=== PATIENT | female | born 1945 | race Caucasian/White ===

== ENCOUNTER 2021-08-13 12:57 | Inpatient (IN) | payer MEDICARE, MEDICAID ==
[2021-08-13] MEDS ORDERED: Sodium Chloride 0.9% 10 ML Syringe FLUSH PRN (13:12)
[2021-08-13] MEDS ORDERED: Sodium Chloride 0.9% 1,000 ML IV SCH (13:30)
--- NOTE | 2021-08-13 13:57 | EDM.PDOC ---
ED HPI GENERAL MEDICAL PROBLEM - General Stated Complaint: Fall/Weakness Time Seen by Provider: 08/13/21 13:00 Source of Information: Reports: Patient, EMS History Limitations: Reports: No Limitations - History of Present Illness INITIAL COMMENTS - FREE TEXT/NARRATIVE: Patient is a 75 YO WF who presented to the ED via EMS because of frequent fall for the past and weakness. She fell getting up from her chair at 4 pm yesterday and landed on her buttock. She c/o low back and and coccygeal pain. She said she was not able to get up from the floor yesterday because her legs are weak. There was no LOC after the fall. She denies having any fever, chills, cough or cold. No Nausea,vomiting, diarrhea. All over Pain Score (Numeric/FACES): 4 - Related Data Allergies Allergy/AdvReac Type Severity Reaction Status Date / Time shrimp Allergy Unknown Other Verified 08/13/21 16:26 Home Meds: Home Meds Venlafaxine HCl [Venlafaxine ER] 75 mg PO DAILY 08/13/21 [History] Venlafaxine HCl [Venlafaxine ER] 150 mg PO DAILY 08/13/21 [History] ED ROS GENERAL - Review of Systems Review Of Systems: See Below Constitutional: Reports: Weakness HEENT: Reports: No Symptoms Respiratory: Reports: No Symptoms Cardiovascular: Reports: No Symptoms Endocrine: Reports: No Symptoms GI/Abdominal: Reports: No Symptoms : Reports: No Symptoms Musculoskeletal: Reports: Back Pain, Other (coccygeal pain) Skin: Reports: No Symptoms Neurological: Reports: No Symptoms Psychiatric: Reports: No Symptoms Hematologic/Lymphatic: Reports: No Symptoms ED EXAM, GENERAL - Physical Exam Exam: See Below Exam Limited By: No Limitations General Appearance: Alert, No Apparent Distress Ears: Normal External Exam, Normal Canal Nose: Normal Inspection, Normal Mucosa, No Blood Throat/Mouth: Normal Inspection, Normal Lips, Normal Teeth Head: Atraumatic, Normocephalic Neck: Normal Inspection, Non-Tender, Full Range of Motion Respiratory/Chest: No Respiratory Distress, Lungs Clear, Normal Breath Sounds, No Accessory Muscle Use, Chest Non-Tender Cardiovascular: Normal Peripheral Pulses, Regular Rate, Rhythm, No Edema, No JVD, No Murmur GI/Abdominal: Normal Bowel Sounds, Soft, Non-Tender, No Organomegaly, No Distention, No Abnormal Bruit, No Mass Back Exam: Normal Inspection, Full Range of Motion Extremities: Normal Inspection, Normal Range of Motion, Non-Tender, No Pedal Edema, Normal Capillary Refill Neurological: Alert, Oriented, CN II-XII Intact, Normal Cognition, Normal Reflexes, No Motor/Sensory Deficits Psychiatric: Normal Affect Skin Exam: Warm #1 Interpretation EKG Date: 08/13/21 Time: 14:41 Rhythm: NSR Rate (Beats/Min): 83 [place]: Normal P-Wave: Present QRS: Normal ST-T: Normal QT: Normal FL/PQ Interval: 158 Comparison: No Change EKG Interpretation Comments: NSR Course - Vital Signs Text/Narrative:: Lab/EKG/CXR/Lumbar and coccygeal xray result was reviewed and discussed with patient NS 1 L bolus Code Status: Full Code Covid test-neg Last Recorded V/S: Last Vital Signs Temp 36.2 C 08/16/21 08:00 Pulse 78 08/16/21 08:00 Resp 20 08/16/21 08:00 BP 148/75 H 08/16/21 08:00 Pulse Ox 92 L 08/16/21 08:00 - Orders/Labs/Meds Orders: Medication Orders Acetaminophen (Acetaminophen 325 Mg Tab) 650 mg PO Q4H PRN PRN Reason: Fever/Pain Last Admin: 08/13/21 20:03 Dose: 650 mg Documented by: [email or web address] Amoxicillin/Clavulanate Potassium (Amoxicillin/Clavulanate K 875-125 Mg Tab) 1 tab PO Q12H [facility] Last Admin: 08/16/21 08:46 Dose: 1 tab Documented by: NOY Enoxaparin Sodium (Enoxaparin 40 Mg/0.4 Ml Syringe) 40 mg SUBCUT Q24H [facility] Last Admin: 08/15/21 17:36 Dose: 40 mg Documented by: [email or web address] Admin: 08/14/21 17:03 Dose: 40 mg Documented by: Admin: 08/13/21 16:44 Dose: 40 mg Documented by: PINA Ondansetron HCl (Ondansetron 4 Mg/2 Ml Sdv) 4 mg IV Q4H PRN PRN Reason: Nausea/Vomiting Senna/Docusate Sodium (Docusate Sodium/Sennosides 50-8.6 Mg Tab) 1 tab PO BID PRN PRN Reason: Constipation Sodium Chloride (Sodium Chloride 0.9% 10 Ml Syringe) 10 ml FLUSH ASDIRECTED PRN PRN Reason: Keep Vein Open Last Admin: 08/14/21 17:04 Dose: 10 ml Documented by: [id number] Tramadol HCl (Tramadol 50 Mg Tab) 50 mg PO Q6H PRN PRN Reason: Pain Venlafaxine HCl (Venlafaxine 75 Mg Cap.Er) 75 mg PO DAILY [facility] Last Admin: 08/16/21 08:46 Dose: 75 mg Documented by: Admin: 08/15/21 08:36 Dose: 75 mg Documented by: Admin: 08/14/21 12:53 Dose: 75 mg Documented by: [email or web address] Venlafaxine HCl (Venlafaxine 150 Mg Cap.Er) 150 mg PO DAILY [facility] Last Admin: 08/16/21 08:47 Dose: 150 mg Documented by: Admin: 08/15/21 08:35 Dose: 150 mg Documented by: Admin: 08/14/21 12:53 Dose: 150 mg Documented by: [email or web address] Labs: Laboratory Tests 08/13/21 08/13/21 08/13/21 Range/Units 13:20 13:32 13:32 WBC 10.0 (3.0-10.3) x10-3/uL RBC 5.18 (3.60-5.20) x10(6)uL Hgb 13.9 (11.4-15.5) g/dL Hct 41.0 (34.2-48.2) % MCV 79.2 (76.7-100.5) fL MCH 26.8 (23.9-33.9) pg MCHC 33.8 (31.9-34.8) g/dL RDW 13.8 (12.3-16.5) % Plt Count 375 (151-488) x10(3)uL MPV 6.7 L (7.1-12.4) fL Neut % (Auto) 73.9 (30.8-76.2) % Lymph % (Auto) 17.0 L (18.4-52.1) % Hunt % (Auto) 8.0 (4.4-15.7) % Eos % (Auto) 0.6 (0.6-8.1) % Baso % (Auto) 0.5 (0.2-1.5) % Neut # (Auto) 7.4 H (1.5-6.3) x10-3/uL Lymph # (Auto) 1.7 (1.0-4.4) x10-3/uL Hunt # (Auto) 0.8 (0.3-1.0) x10-3/uL Eos # (Auto) 0.1 (0.0-0.8) x10-3/uL Baso # (Auto) 0.0 (0.0-0.1) x10-3/uL Sodium 141 (135-145) mmol/L Potassium 3.2 L (3.5-5.3) mmol/L Chloride 103 (100-110) mmol/L Carbon Dioxide 29 (21-32) mmol/L BUN 11 (7-18) mg/dL Creatinine 0.8 (0.55-1.02) mg/dL Est Cr Clr Drug Dosing TNP Estimated GFR (MDRD) > 60 (>60) BUN/Creatinine Ratio 13.8 (9-20) Glucose 121 H (80-116) mg/dL Calcium 9.4 (8.6-10.2) mg/dL Total Bilirubin 1.0 (0.1-1.3) mg/dL AST 73 H (5-25) IU/L ALT 42 H (12-36) U/L Alkaline Phosphatase 88 (56-112) IU/L Creatine Kinase 1333 H* (60-160) IU/L Troponin I (4.0-60.3) pg/mL Total Protein 7.9 (6.0-8.0) g/dL Albumin 3.4 (3.2-4.6) g/dL Globulin 4.5 g/dL Albumin/Globulin Ratio 0.8 Urine Color (YELLOW) Urine Appearance (CLEAR) Urine pH (5.0-6.5) Ur Specific [place] (1.010-1.025) Urine Protein (NEGATIVE) mg/dL Urine Glucose (UA) (NORMAL) mg/dL Urine Ketones (NEGATIVE) mg/dL Urine Occult Blood (NEGATIVE) Urine Nitrite (NEGATIVE) Urine Bilirubin (NEGATIVE) Urine Urobilinogen (NEGATIVE) mg/dL Ur Leukocyte Esterase (NEGATIVE) Urine RBC (0-5) Urine WBC (0-5) Ur Squamous Epith Cells (NS,R,O) Urine Bacteria (NS) SARS-CoV-2 RNA (YURI) Negative (NEGATIVE) 08/13/21 08/13/21 08/14/21 Range/Units 13:32 15:00 06:35 WBC (3.0-10.3) x10-3/uL RBC (3.60-5.20) x10(6)uL Hgb (11.4-15.5) g/dL Hct (34.2-48.2) % MCV (76.7-100.5) fL MCH (23.9-33.9) pg MCHC (31.9-34.8) g/dL RDW (12.3-16.5) % Plt Count (151-488) x10(3)uL MPV (7.1-12.4) fL Neut % (Auto) (30.8-76.2) % Lymph % (Auto) (18.4-52.1) % Hunt % (Auto) (4.4-15.7) % Eos % (Auto) (0.6-8.1) % Baso % (Auto) (0.2-1.5) % Neut # (Auto) (1.5-6.3) x10-3/uL Lymph # (Auto) (1.0-4.4) x10-3/uL Hunt # (Auto) (0.3-1.0) x10-3/uL Eos # (Auto) (0.0-0.8) x10-3/uL Baso # (Auto) (0.0-0.1) x10-3/uL Sodium 146 H (135-145) mmol/L Potassium 3.8 (3.5-5.3) mmol/L Chloride 110 D (100-110) mmol/L Carbon Dioxide 28 (21-32) mmol/L BUN 12 (7-18) mg/dL Creatinine 0.8 (0.55-1.02) mg/dL Est Cr Clr Drug Dosing 59.09 Estimated GFR (MDRD) > 60 (>60) BUN/Creatinine Ratio 15.0 (9-20) Glucose 102 (80-116) mg/dL Calcium 8.8 (8.6-10.2) mg/dL Total Bilirubin (0.1-1.3) mg/dL AST (5-25) IU/L ALT (12-36) U/L Alkaline Phosphatase (56-112) IU/L Creatine Kinase 468 H* (60-160) IU/L Troponin I 15.8 (4.0-60.3) pg/mL Total Protein (6.0-8.0) g/dL Albumin (3.2-4.6) g/dL Globulin g/dL Albumin/Globulin Ratio Urine Color Yellow (YELLOW) Urine Appearance Slightly cloudy (CLEAR) Urine pH 5.0 (5.0-6.5) Ur Specific [place] 1.030 H (1.010-1.025) Urine Protein Negative (NEGATIVE) mg/dL Urine Glucose (UA) Normal (NORMAL) mg/dL Urine Ketones Negative (NEGATIVE) mg/dL Urine Occult Blood Large H (NEGATIVE) Urine Nitrite Positive H (NEGATIVE) Urine Bilirubin Negative (NEGATIVE) Urine Urobilinogen Normal (NEGATIVE) mg/dL Ur Leukocyte Esterase Negative (NEGATIVE) Urine RBC 5-10 H (0-5) Urine WBC 5-10 H (0-5) Ur Squamous Epith Cells Few H (NS,R,O) Urine Bacteria Many H (NS) SARS-CoV-2 RNA (YURI) (NEGATIVE) Meds: Medications Generic Name Dose Route Start Last Admin Trade Name Freq PRN Reason Stop Dose Admin Acetaminophen 650 mg 08/13/21 16:02 08/13/21 20:03 Acetaminophen 325 Mg Tab PO 650 mg Q4H PRN Administration Fever/Pain Amoxicillin/Clavulanate Potassium 1 tab 08/16/21 08:00 08/16/21 08:46 Amoxicillin/Clavulanate K 875-125 Mg Tab PO 1 tab Q12H EBONI Administration Enoxaparin Sodium 40 mg 08/13/21 16:30 08/15/21 17:36 Enoxaparin 40 Mg/0.4 Ml Syringe SUBCUT 40 mg Q24H EBONI Administration Ondansetron HCl 4 mg 08/13/21 15:56 Ondansetron 4 Mg/2 Ml Sdv IV Q4H PRN Nausea/Vomiting Senna/Docusate Sodium 1 tab 08/13/21 15:56 Docusate Sodium/Sennosides 50-8.6 Mg Tab PO BID PRN Constipation Sodium Chloride 10 ml 08/13/21 13:12 08/14/21 17:04 Sodium Chloride 0.9% 10 Ml Syringe FLUSH 10 ml ASDIRECTED PRN Administration Keep Vein Open Tramadol HCl 50 mg 08/13/21 16:03 Tramadol 50 Mg Tab PO Q6H PRN Pain Venlafaxine HCl 75 mg 08/14/21 11:30 08/16/21 08:46 Venlafaxine 75 Mg Cap.Er PO 75 mg DAILY EBONI Administration Venlafaxine HCl 150 mg 08/14/21 11:30 08/16/21 08:47 Venlafaxine 150 Mg Cap.Er PO 150 mg DAILY EBONI Administration Discontinued Medications Generic Name Dose Route Start Last Admin Trade Name Freq PRN Reason Stop Dose Admin Ceftriaxone Sodium 1 gm 08/13/21 16:30 08/15/21 17:36 Ceftriaxone 1 Gm Vial IV 1 gm Q24H EBONI Administration Sodium Chloride 1,000 mls @ 999 mls/hr 08/13/21 13:30 08/13/21 14:20 Normal Saline IV 999 mls/hr ASDIRECTED EBONI Administration Potassium Chloride/Sodium Chloride 1,000 mls @ 125 mls/hr 08/13/21 16:30 08/14/21 18:14 Normal Saline With 20 Meq Kcl IV 125 mls/hr Q8H EBONI Administration Potassium Chloride/Sodium Chloride 1,000 mls @ 75 mls/hr 08/14/21 19:46 08/15/21 06:56 Normal Saline With 20 Meq Kcl IV 75 mls/hr ASDIRECTED EBONI Administration Departure - Departure Time of Disposition: 14:00 Disposition: Refer to Observation Condition: Good Clinical Impression: Frequent falls, Weakness, Rhabdomyolysis, UTI (urinary tract infection), Hypokalemia - Discharge Information
--- NOTE | 2021-08-13 14:37 | CR ---
INDICATION: Weakness, fall. CHEST, ONE VIEW: An AP upright view of the chest was obtained, 08/13/21 - no comparisons. The heart was normal in size. The aorta is tortuous with calcification in the arch. An active infiltrate, effusion or contusion was not identified. Evidence of exogenous obesity is noted. IMPRESSION: No acute process. MTDD
--- NOTE | 2021-08-13 14:43 | CR ---
INDICATION: Fall, low back pain. LUMBOSACRAL SPINE: Five views of the lumbosacral spine were obtained, 08/13/21 - no comparisons. A mild dextroconvex of minimally rotatory scoliosis of the upper middle lumbar spine is noted. The pedicles appear to be intact. Degenerative disc disease is suggested by decreased disc space at L3-4, and especially L4-5, with probable disc disease also at L5-S1. Hypertrophic degenerative changes are mild to moderate at those levels off vertebral bodies anteriorly for the most part. Overall bone density may be very slightly decreased, raising question of osteoporosis - correlate clinically. There is narrowing and sclerosis at the L5-S1 apophyseal joints, right greater than left and also at L4-5 on the right. A definite acute fracture or dislocation was not identified. Sacroiliac joints appear to be intact. IMPRESSION: 1. Degenerative changes and disc disease, as noted above, with no acute bone or joint abnormality identified. 2. If symptoms persist - if occult fracture site is suspected clinically, reexamination with more advanced imaging may be warranted. CASEYD
--- NOTE | 2021-08-13 14:47 | CR ---
INDICATION: Fall, coccygeal pain. SACRUM AND COCCYX: Three views of the sacrum and coccyx were obtained, 08/13/21 - no comparisons. Stool is noted overlying the sacrum and coccyx on the frontal views, limiting detail somewhat. Sacroiliac joints show evidence of mild degenerative hypertrophic change. At the coccyx, there is some angulation posteriorly of first and second elements, raising question of posttraumatic change, although without old films for comparison, the possibility of developmental variation is also a consideration. This should be correlated clinically. IMPRESSION: 1. Lower coccygeal segments appear to be anteriorly angulated, which may be on the basis posttraumatic change or possibly be developmental - correlate clinically. 2. Mild degenerative changes, sacroiliac joints. Report was called to Dr. Roque at 1428 hours, 08/13/21. [facility]
[2021-08-13] MEDS ORDERED: Ondansetron 4 MG/2 ML SDV IV PRN (15:56)
[2021-08-13] MEDS ORDERED: cefTRIAXone 1 GM in Sodium Chloride 0.9% 50 ML IV SCH (16:00)
[2021-08-13] MEDS ORDERED: Acetaminophen 325 MG Tab PO PRN (16:02)
[2021-08-13] MEDS ORDERED: traMADol 50 MG Tab PO PRN (16:03)
[2021-08-13] MEDS: NS + KCl 20mEq/L 1,000 ML IV SCH (16:43)
[2021-08-13] MEDS: Enoxaparin 40 MG/0.4 ML Syringe SUBCUT SCH (16:44)
[2021-08-13] MEDS: cefTRIAXone 1 GM Vial IV SCH (16:44)
--- NOTE | 2021-08-13 17:29 | PCM.HP.2 ---
H&P History of Present Illness - General Date of Service: 08/13/21 Admit Problem/Dx: Admission Diagnosis/Problem Admission Diagnosis/Problem Weakness Source of Information: Patient - History of Present Illness Initial Comments - Free Text/Narative: 75-year-old lady was taken to the emergency department via EMS due to significant weakness and falls. She has been having increasing weakness and increasing falls over the last several days. She has had these problems in the past and seems to be getting progressively weaker over time. She states that she felt quite well with no fever, chills, flulike symptoms, chest pain, shortness of breath, change in bowel or bladder habits. She just gets weak and sometimes falls. Yesterday she fell out of her chair and spent quite some time on the floor. She lives in an apartment with her but her was off at the [facility]. She was able to call for help and EMS brought her to the emergency department in the emergency department imaging was done because of complaint of pain in the buttocks and lower back secondary to fall the day before. These x-rays were grossly negative. Chest x-ray was negative. Laboratory analysis showed significant increase in creatinine kinase likely secondary to rhabdomyolysis secondary to being on the floor for several hours and likely urinary tract infection. Patient will be admitted to observation and evaluated with PT/OT. To be treated with IV antibiotics and culture was started for her urine. - Related Data Allergies/Adverse Reactions: Allergies Allergy/AdvReac Type Severity Reaction Status Date / Time shrimp Allergy Unknown Other Verified 08/13/21 16:26 Home Medications: Home Meds Venlafaxine HCl [Venlafaxine ER] 75 mg PO DAILY 08/13/21 [History] Venlafaxine HCl [Venlafaxine ER] 150 mg PO DAILY 08/13/21 [History] H&P Review of Systems - Review of Systems: Review Of Systems: See Below General: Reports: Weakness HEENT: Reports: No Symptoms Pulmonary: Reports: No Symptoms Cardiovascular: Reports: No Symptoms Gastrointestinal: Reports: No Symptoms Genitourinary: Reports: No Symptoms Musculoskeletal: Reports: Back Pain, Leg Pain Skin: Reports: No Symptoms Psychiatric: Reports: No Symptoms Neurological: Reports: Difficulty Walking, Weakness Hematologic/Lymphatic: Reports: No Symptoms Immunologic: Reports: No Symptoms Exam - Exam Exam: See Below - Vital Signs Weight: 90.129 kg - Exam Quality Assessment: Supplemental Oxygen, DVT Prophylaxis General: Alert, Oriented, Cooperative HEENT: EOMI Neck: Supple Lungs: Clear to Auscultation, Normal Respiratory Effort Cardiovascular: Regular Rate, Regular Rhythm GI/Abdominal Exam: Normal Bowel Sounds, Soft, Non-Tender Back Exam: Normal Inspection Extremities: Normal Inspection Peripheral Pulses: 2+: Radial (L), Radial (R), Dorsalis Pedis (L), Dorsalis Pedis (R) Skin: Warm, Dry Neurological: Cranial Nerves Intact Neuro Extensive - Mental Status: Alert, Oriented x3, Normal Mood/Affect, Normal Cognition Psychiatric: Alert, Normal Affect, Normal Mood - Patient Data Lab Results Last 24 hrs: Laboratory Results - last 24 hr 08/13/21 08/13/21 08/13/21 Range/Units 13:20 13:32 13:32 WBC 10.0 (3.0-10.3) x10-3/uL RBC 5.18 (3.60-5.20) x10(6)uL Hgb 13.9 (11.4-15.5) g/dL Hct 41.0 (34.2-48.2) % MCV 79.2 (76.7-100.5) fL MCH 26.8 (23.9-33.9) pg MCHC 33.8 (31.9-34.8) g/dL RDW 13.8 (12.3-16.5) % Plt Count 375 (151-488) x10(3)uL MPV 6.7 L (7.1-12.4) fL Neut % (Auto) 73.9 (30.8-76.2) % Lymph % (Auto) 17.0 L (18.4-52.1) % [place] % (Auto) 8.0 (4.4-15.7) % Eos % (Auto) 0.6 (0.6-8.1) % Baso % (Auto) 0.5 (0.2-1.5) % Neut # (Auto) 7.4 H (1.5-6.3) x10-3/uL Lymph # (Auto) 1.7 (1.0-4.4) x10-3/uL [place] # (Auto) 0.8 (0.3-1.0) x10-3/uL Eos # (Auto) 0.1 (0.0-0.8) x10-3/uL Baso # (Auto) 0.0 (0.0-0.1) x10-3/uL Sodium 141 (135-145) mmol/L Potassium 3.2 L (3.5-5.3) mmol/L Chloride 103 (100-110) mmol/L Carbon Dioxide 29 (21-32) mmol/L BUN 11 (7-18) mg/dL Creatinine 0.8 (0.55-1.02) mg/dL Est Cr Clr Drug Dosing TNP Estimated GFR (MDRD) > 60 (>60) BUN/Creatinine Ratio 13.8 (9-20) Glucose 121 H (80-116) mg/dL Calcium 9.4 (8.6-10.2) mg/dL Total Bilirubin 1.0 (0.1-1.3) mg/dL AST 73 H (5-25) IU/L ALT 42 H (12-36) U/L Alkaline Phosphatase 88 (56-112) IU/L Creatine Kinase 1333 H* (60-160) IU/L Troponin I (4.0-60.3) pg/mL Total Protein 7.9 (6.0-8.0) g/dL Albumin 3.4 (3.2-4.6) g/dL Globulin 4.5 g/dL Albumin/Globulin Ratio 0.8 Urine Color (YELLOW) Urine Appearance (CLEAR) Urine pH (5.0-6.5) Ur Specific Alexis (1.010-1.025) Urine Protein (NEGATIVE) mg/dL Urine Glucose (UA) (NORMAL) mg/dL Urine Ketones (NEGATIVE) mg/dL Urine Occult Blood (NEGATIVE) Urine Nitrite (NEGATIVE) Urine Bilirubin (NEGATIVE) Urine Urobilinogen (NEGATIVE) mg/dL Ur Leukocyte Esterase (NEGATIVE) Urine RBC (0-5) Urine WBC (0-5) Ur Squamous Epith Cells (NS,R,O) Urine Bacteria (NS) SARS-CoV-2 RNA (YURI) Negative (NEGATIVE) 08/13/21 08/13/21 Range/Units 13:32 15:00 WBC (3.0-10.3) x10-3/uL RBC (3.60-5.20) x10(6)uL Hgb (11.4-15.5) g/dL Hct (34.2-48.2) % MCV (76.7-100.5) fL MCH (23.9-33.9) pg MCHC (31.9-34.8) g/dL RDW (12.3-16.5) % Plt Count (151-488) x10(3)uL MPV (7.1-12.4) fL Neut % (Auto) (30.8-76.2) % Lymph % (Auto) (18.4-52.1) % [place] % (Auto) (4.4-15.7) % Eos % (Auto) (0.6-8.1) % Baso % (Auto) (0.2-1.5) % Neut # (Auto) (1.5-6.3) x10-3/uL Lymph # (Auto) (1.0-4.4) x10-3/uL [place] # (Auto) (0.3-1.0) x10-3/uL Eos # (Auto) (0.0-0.8) x10-3/uL Baso # (Auto) (0.0-0.1) x10-3/uL Sodium (135-145) mmol/L Potassium (3.5-5.3) mmol/L Chloride (100-110) mmol/L Carbon Dioxide (21-32) mmol/L BUN (7-18) mg/dL Creatinine (0.55-1.02) mg/dL Est Cr Clr Drug Dosing Estimated GFR (MDRD) (>60) BUN/Creatinine Ratio (9-20) Glucose (80-116) mg/dL Calcium (8.6-10.2) mg/dL Total Bilirubin (0.1-1.3) mg/dL AST (5-25) IU/L ALT (12-36) U/L Alkaline Phosphatase (56-112) IU/L Creatine Kinase (60-160) IU/L Troponin I 15.8 (4.0-60.3) pg/mL Total Protein (6.0-8.0) g/dL Albumin (3.2-4.6) g/dL Globulin g/dL Albumin/Globulin Ratio Urine Color Yellow (YELLOW) Urine Appearance Slightly cloudy (CLEAR) Urine pH 5.0 (5.0-6.5) Ur Specific Alexis 1.030 H (1.010-1.025) Urine Protein Negative (NEGATIVE) mg/dL Urine Glucose (UA) Normal (NORMAL) mg/dL Urine Ketones Negative (NEGATIVE) mg/dL Urine Occult Blood Large H (NEGATIVE) Urine Nitrite Positive H (NEGATIVE) Urine Bilirubin Negative (NEGATIVE) Urine Urobilinogen Normal (NEGATIVE) mg/dL Ur Leukocyte Esterase Negative (NEGATIVE) Urine RBC 5-10 H (0-5) Urine WBC 5-10 H (0-5) Ur Squamous Epith Cells Few H (NS,R,O) Urine Bacteria Many H (NS) SARS-CoV-2 RNA (YURI) (NEGATIVE) Result Diagrams: 08/13/21 13:32 08/13/21 13:32 - Problem List (1) Frequent falls SNOMED Code(s): 339291988 ICD Code: R29.6 - REPEATED FALLS Status: Acute Current Visit: Yes (2) Hypokalemia SNOMED Code(s): 26834716 ICD Code: E87.6 - HYPOKALEMIA Status: Acute Current Visit: Yes (3) Rhabdomyolysis SNOMED Code(s): 823219506 ICD Code: M62.82 - RHABDOMYOLYSIS Status: Acute Current Visit: Yes (4) UTI (urinary tract infection) SNOMED Code(s): 24641558 ICD Code: N39.0 - URINARY TRACT INFECTION, SITE NOT SPECIFIED Status: Acute Current Visit: Yes (5) Weakness SNOMED Code(s): 00090030 ICD Code: R53.1 - WEAKNESS Status: Acute Current Visit: Yes (6) Depression SNOMED Code(s): 07536066 ICD Code: F32.A - DEPRESSION, UNSPECIFIED Status: Acute Current Visit: Yes Problem List Initiated/Reviewed/Updated: Yes Orders Last 24hrs: Active Orders 24 hr Category Date Time Status Patient Status [ADT] Routine ADT 08/13/21 15:56 Active Patient Status [ADT] Routine ADT 08/13/21 17:18 Ordered Antiembolic Devices [RC] .Routine Care 08/13/21 17:19 Ordered Bedrest Bathroom Privileges [RC] ASDIRECTED Care 08/13/21 15:56 Active Height and Weight [RC] DAILY Care 08/13/21 15:56 Active Intake and Output [RC] QSHIFT Care 08/13/21 15:58 Active Oxygen Therapy [RC] PRN Care 08/13/21 15:56 Active Pulse Oximetry [RC] 08 Care 08/13/21 15:58 Active Pulse Oximetry [RC] PRN Care 08/13/21 17:18 Ordered Up With Assistance [RC] ASDIRECTED Care 08/13/21 15:56 Active VTE/DVT Education [RC] Click to Edit Care 08/13/21 17:19 Ordered VTE/DVT Education [RC] Per Unit Routine Care 08/13/21 15:56 Active Vital Signs [RC] Q4H Care 08/13/21 15:56 Active Vital Signs [RC] Q4H Care 08/13/21 17:18 Ordered OT Evaluation and Treatment [CONS] Routine Cons 08/13/21 17:20 Ordered PT Evaluation and Treatment [CONS] Routine Cons 08/13/21 17:21 Ordered Heart Healthy Diet [DIET] Diet 08/13/21 Dinner Ordered BASIC METABOLIC PANEL,BMP [CHEM] AM Lab 08/14/21 05:11 Ordered CREATINE KINASE,CK [CHEM] AM Lab 08/14/21 05:11 Ordered CULTURE URINE [RM] Stat Lab 08/13/21 15:00 Received Acetaminophen [TylenoL] Med 08/13/21 16:02 Active 650 mg PO Q4H PRN Docusate Sodium/Sennosides [Senna Plus] Med 08/13/21 15:56 Active 1 tab PO BID PRN Enoxaparin [Lovenox] Med 08/13/21 16:30 Active 40 mg SUBCUT Q24H NS + KCl 20mEq/L [Normal Saline with 20 mEq KCl] 1,000 Med 08/13/21 16:30 Active ml IV Q8H Ondansetron [Zofran] Med 08/13/21 15:56 Active 4 mg IV Q4H PRN Sodium Chloride 0.9% [Normal Saline] 1,000 ml Med 08/13/21 13:30 Active IV ASDIRECTED Sodium Chloride 0.9% [Saline Flush] Med 08/13/21 13:12 Active 10 ml FLUSH ASDIRECTED PRN Venlafaxine [Effexor XR] Med 08/14/21 09:00 Pending 150 mg PO DAILY Venlafaxine [Effexor XR] Med 08/14/21 09:00 Pending 75 mg PO DAILY cefTRIAXone [Rocephin] Med 08/13/21 16:30 Active 1 gm IV Q24H traMADol [Ultram] Med 08/13/21 16:03 Active 50 mg PO Q6H PRN DVT/VTE Prophylaxis Reflex [OM.PC] Per Unit Routine Oth 08/13/21 17:18 Ordered Saline Lock Insert [OM.PC] Routine Oth 08/13/21 13:12 Ordered Sequential Compression Device [OM.PC] Per Unit Routine Oth 08/13/21 15:59 Ordered Resuscitation Status Routine Resus Stat 08/13/21 15:56 Ordered EKG 12 Lead [EK] Routine Ther 08/13/21 13:12 Ordered Medication Orders Acetaminophen (Acetaminophen 325 Mg Tab) 650 mg PO Q4H PRN PRN Reason: Fever/Pain Ceftriaxone Sodium (Ceftriaxone 1 Gm Vial) 1 gm IV Q24H FOR[facility], [facility]1983 Last Admin: 08/13/21 16:44 Dose: 1 gm Documented by: PINA Enoxaparin Sodium (Enoxaparin 40 Mg/0.4 Ml Syringe) 40 mg SUBCUT Q24H [facility], [facility]–1983 Last Admin: 08/13/21 16:44 Dose: 40 mg Documented by: PINA Sodium Chloride (Normal Saline) 1,000 mls @ 999 mls/hr IV ASDIRECTED [facility], [facility]–1983 Potassium Chloride/Sodium Chloride (Normal Saline With 20 Meq Kcl) 1,000 mls @ 125 mls/hr IV Q8H [facility] Last Admin: 08/13/21 16:43 Dose: 125 mls/hr Documented by: PINA Ondansetron HCl (Ondansetron 4 Mg/2 Ml Sdv) 4 mg IV Q4H PRN PRN Reason: Nausea/Vomiting Senna/Docusate Sodium (Docusate Sodium/Sennosides 50-8.6 Mg Tab) 1 tab PO BID PRN PRN Reason: Constipation Sodium Chloride (Sodium Chloride 0.9% 10 Ml Syringe) 10 ml FLUSH ASDIRECTED PRN PRN Reason: Keep Vein Open Tramadol HCl (Tramadol 50 Mg Tab) 50 mg PO Q6H PRN PRN Reason: Pain Venlafaxine HCl (Venlafaxine 75 Mg Cap.Er) 75 mg PO DAILY [facility] Venlafaxine HCl (Venlafaxine 150 Mg Cap.Er) 150 mg PO DAILY [facility] Assessment/Plan Comment:: 1. Admit patient to observation. Trend BMP and CPK. OT/PT evaluation tomorrow 2. Weakness: Occupational physical therapy 3. UTI: Monitor urine culture, ceftriaxone, 1 g daily, fluids 4. Hypokalemia: Trend electrolytes, repleat electrolytes as necessary 5. DVT prophylaxis: 40 mg subcu enoxaparin daily 6. GI prophylaxis: Heart healthy diet 7. Disposition: Pending treatment efficacy and PT/OT evaluation, likely 1 to 2 days
[2021-08-14] MEDS: NS + KCl 20mEq/L 1,000 ML IV SCH ×4 (00:32→20:39)
--- NOTE | 2021-08-14 10:32 | PCM.PN ---
- General Info Date of Service: 08/14/21 Admission Dx/Problem (Free Text): Admission Diagnosis/Problem Admission Diagnosis/Problem Weakness Subjective Update: Patient states that she feels much better today but is still very weak. She has no pain at this time Functional Status: Reports: Pain Controlled, Tolerating Diet, Ambulating, Urinating - Review of Systems General: Reports: Weakness HEENT: Reports: No Symptoms Pulmonary: Reports: No Symptoms Cardiovascular: Reports: No Symptoms Gastrointestinal: Reports: No Symptoms Genitourinary: Reports: No Symptoms Musculoskeletal: Reports: No Symptoms Skin: Reports: No Symptoms Neurological: Reports: Difficulty Walking, Weakness Psychiatric: Reports: No Symptoms - Patient Data Vitals - Most Recent: Last Vital Signs Temp 36.7 C 08/14/21 04:00 Pulse 86 08/14/21 04:00 Resp 14 08/14/21 04:00 BP 140/68 08/14/21 04:00 Pulse Ox 96 08/14/21 04:00 Weight - Most Recent: 90.174 kg I&O - Last 24 Hours: Intake & Output 08/13/21 08/14/21 08/14/21 22:59 06:59 14:59 Intake Total 1886 1002 Balance 1886 1002 Lab Results Last 24 Hours: Laboratory Results - last 24 hr 08/13/21 08/13/21 08/13/21 Range/Units 13:20 13:32 13:32 WBC 10.0 (3.0-10.3) x10-3/uL RBC 5.18 (3.60-5.20) x10(6)uL Hgb 13.9 (11.4-15.5) g/dL Hct 41.0 (34.2-48.2) % MCV 79.2 (76.7-100.5) fL MCH 26.8 (23.9-33.9) pg MCHC 33.8 (31.9-34.8) g/dL RDW 13.8 (12.3-16.5) % Plt Count 375 (151-488) x10(3)uL MPV 6.7 L (7.1-12.4) fL Neut % (Auto) 73.9 (30.8-76.2) % Lymph % (Auto) 17.0 L (18.4-52.1) % Davis % (Auto) 8.0 (4.4-15.7) % Eos % (Auto) 0.6 (0.6-8.1) % Baso % (Auto) 0.5 (0.2-1.5) % Neut # (Auto) 7.4 H (1.5-6.3) x10-3/uL Lymph # (Auto) 1.7 (1.0-4.4) x10-3/uL Davis # (Auto) 0.8 (0.3-1.0) x10-3/uL Eos # (Auto) 0.1 (0.0-0.8) x10-3/uL Baso # (Auto) 0.0 (0.0-0.1) x10-3/uL Sodium 141 (135-145) mmol/L Potassium 3.2 L (3.5-5.3) mmol/L Chloride 103 (100-110) mmol/L Carbon Dioxide 29 (21-32) mmol/L BUN 11 (7-18) mg/dL Creatinine 0.8 (0.55-1.02) mg/dL Est Cr Clr Drug Dosing TNP Estimated GFR (MDRD) > 60 (>60) BUN/Creatinine Ratio 13.8 (9-20) Glucose 121 H (80-116) mg/dL Calcium 9.4 (8.6-10.2) mg/dL Total Bilirubin 1.0 (0.1-1.3) mg/dL AST 73 H (5-25) IU/L ALT 42 H (12-36) U/L Alkaline Phosphatase 88 (56-112) IU/L Creatine Kinase 1333 H* (60-160) IU/L Troponin I (4.0-60.3) pg/mL Total Protein 7.9 (6.0-8.0) g/dL Albumin 3.4 (3.2-4.6) g/dL Globulin 4.5 g/dL Albumin/Globulin Ratio 0.8 Urine Color (YELLOW) Urine Appearance (CLEAR) Urine pH (5.0-6.5) Ur Specific [place] (1.010-1.025) Urine Protein (NEGATIVE) mg/dL Urine Glucose (UA) (NORMAL) mg/dL Urine Ketones (NEGATIVE) mg/dL Urine Occult Blood (NEGATIVE) Urine Nitrite (NEGATIVE) Urine Bilirubin (NEGATIVE) Urine Urobilinogen (NEGATIVE) mg/dL Ur Leukocyte Esterase (NEGATIVE) Urine RBC (0-5) Urine WBC (0-5) Ur Squamous Epith Cells (NS,R,O) Urine Bacteria (NS) SARS-CoV-2 RNA (YURI) Negative (NEGATIVE) 08/13/21 08/13/21 08/14/21 Range/Units 13:32 15:00 06:35 WBC (3.0-10.3) x10-3/uL RBC (3.60-5.20) x10(6)uL Hgb (11.4-15.5) g/dL Hct (34.2-48.2) % MCV (76.7-100.5) fL MCH (23.9-33.9) pg MCHC (31.9-34.8) g/dL RDW (12.3-16.5) % Plt Count (151-488) x10(3)uL MPV (7.1-12.4) fL Neut % (Auto) (30.8-76.2) % Lymph % (Auto) (18.4-52.1) % Davis % (Auto) (4.4-15.7) % Eos % (Auto) (0.6-8.1) % Baso % (Auto) (0.2-1.5) % Neut # (Auto) (1.5-6.3) x10-3/uL Lymph # (Auto) (1.0-4.4) x10-3/uL Davis # (Auto) (0.3-1.0) x10-3/uL Eos # (Auto) (0.0-0.8) x10-3/uL Baso # (Auto) (0.0-0.1) x10-3/uL Sodium 146 H (135-145) mmol/L Potassium 3.8 (3.5-5.3) mmol/L Chloride 110 D (100-110) mmol/L Carbon Dioxide 28 (21-32) mmol/L BUN 12 (7-18) mg/dL Creatinine 0.8 (0.55-1.02) mg/dL Est Cr Clr Drug Dosing 59.09 Estimated GFR (MDRD) > 60 (>60) BUN/Creatinine Ratio 15.0 (9-20) Glucose 102 (80-116) mg/dL Calcium 8.8 (8.6-10.2) mg/dL Total Bilirubin (0.1-1.3) mg/dL AST (5-25) IU/L ALT (12-36) U/L Alkaline Phosphatase (56-112) IU/L Creatine Kinase 468 H* (60-160) IU/L Troponin I 15.8 (4.0-60.3) pg/mL Total Protein (6.0-8.0) g/dL Albumin (3.2-4.6) g/dL Globulin g/dL Albumin/Globulin Ratio Urine Color Yellow (YELLOW) Urine Appearance Slightly cloudy (CLEAR) Urine pH 5.0 (5.0-6.5) Ur Specific [place] 1.030 H (1.010-1.025) Urine Protein Negative (NEGATIVE) mg/dL Urine Glucose (UA) Normal (NORMAL) mg/dL Urine Ketones Negative (NEGATIVE) mg/dL Urine Occult Blood Large H (NEGATIVE) Urine Nitrite Positive H (NEGATIVE) Urine Bilirubin Negative (NEGATIVE) Urine Urobilinogen Normal (NEGATIVE) mg/dL Ur Leukocyte Esterase Negative (NEGATIVE) Urine RBC 5-10 H (0-5) Urine WBC 5-10 H (0-5) Ur Squamous Epith Cells Few H (NS,R,O) Urine Bacteria Many H (NS) SARS-CoV-2 RNA (YURI) (NEGATIVE) Jem Results Last 24 Hours: Microbiology 08/13/21 15:00 Urine Culture - Preliminary Urine, Clean Catch Gram Negative Rods Med Orders - Current: Current Medications Acetaminophen (Acetaminophen 325 Mg Tab) 650 mg PO Q4H PRN PRN Reason: Fever/Pain Last Admin: 08/13/21 20:03 Dose: 650 mg Documented by: Ceftriaxone Sodium (Ceftriaxone 1 Gm Vial) 1 gm IV Q24H [facility] Last Admin: 08/13/21 16:44 Dose: 1 gm Documented by: Enoxaparin Sodium (Enoxaparin 40 Mg/0.4 Ml Syringe) 40 mg SUBCUT Q24H [facility] Last Admin: 08/13/21 16:44 Dose: 40 mg Documented by: Sodium Chloride (Normal Saline) 1,000 mls @ 999 mls/hr IV ASDIRECTED [facility] Last Admin: 08/13/21 14:20 Dose: 999 mls/hr Documented by: Potassium Chloride/Sodium Chloride (Normal Saline With 20 Meq Kcl) 1,000 mls @ 125 mls/hr IV Q8H [facility] Last Admin: 08/14/21 08:39 Dose: 125 mls/hr Documented by: Ondansetron HCl (Ondansetron 4 Mg/2 Ml Sdv) 4 mg IV Q4H PRN PRN Reason: Nausea/Vomiting Senna/Docusate Sodium (Docusate Sodium/Sennosides 50-8.6 Mg Tab) 1 tab PO BID PRN PRN Reason: Constipation Sodium Chloride (Sodium Chloride 0.9% 10 Ml Syringe) 10 ml FLUSH ASDIRECTED PRN PRN Reason: Keep Vein Open Tramadol HCl (Tramadol 50 Mg Tab) 50 mg PO Q6H PRN PRN Reason: Pain Venlafaxine HCl (Venlafaxine 75 Mg Cap.Er) 75 mg PO DAILY [facility] Venlafaxine HCl (Venlafaxine 150 Mg Cap.Er) 150 mg PO DAILY [facility] Comments:: Patient was lying in bed and states that she had just woken up. She not had breakfast yet but she was looking forward to breakfast. She is alert, cooperative - Exam Quality Assessment: Supplemental Oxygen, DVT Prophylaxis Urinary Catheter Total Time: 0Days 10Hours General: Alert, Oriented, Cooperative, No Acute Distress HEENT: EOMI Neck: Supple Lungs: Clear to Auscultation Cardiovascular: Regular Rate, Regular Rhythm GI/Abdominal Exam: Normal Bowel Sounds, Non-Tender Back Exam: Normal Inspection Extremities: Pedal Edema Peripheral Pulses: 1+: Dorsalis Pedis (L), Dorsalis Pedis (R), 2+: Radial (L), Radial (R) Skin: Warm, Dry Neurological: No New Focal Deficit Psy/Mental Status: Alert, Normal Affect, Normal Mood - Patient Data Lab Results Last 24 hrs: Laboratory Results - last 24 hr 08/13/21 08/13/21 08/13/21 Range/Units 13:20 13:32 13:32 WBC 10.0 (3.0-10.3) x10-3/uL RBC 5.18 (3.60-5.20) x10(6)uL Hgb 13.9 (11.4-15.5) g/dL Hct 41.0 (34.2-48.2) % MCV 79.2 (76.7-100.5) fL MCH 26.8 (23.9-33.9) pg MCHC 33.8 (31.9-34.8) g/dL RDW 13.8 (12.3-16.5) % Plt Count 375 (151-488) x10(3)uL MPV 6.7 L (7.1-12.4) fL Neut % (Auto) 73.9 (30.8-76.2) % Lymph % (Auto) 17.0 L (18.4-52.1) % Davis % (Auto) 8.0 (4.4-15.7) % Eos % (Auto) 0.6 (0.6-8.1) % Baso % (Auto) 0.5 (0.2-1.5) % Neut # (Auto) 7.4 H (1.5-6.3) x10-3/uL Lymph # (Auto) 1.7 (1.0-4.4) x10-3/uL Davis # (Auto) 0.8 (0.3-1.0) x10-3/uL Eos # (Auto) 0.1 (0.0-0.8) x10-3/uL Baso # (Auto) 0.0 (0.0-0.1) x10-3/uL Sodium 141 (135-145) mmol/L Potassium 3.2 L (3.5-5.3) mmol/L Chloride 103 (100-110) mmol/L Carbon Dioxide 29 (21-32) mmol/L BUN 11 (7-18) mg/dL Creatinine 0.8 (0.55-1.02) mg/dL Est Cr Clr Drug Dosing TNP Estimated GFR (MDRD) > 60 (>60) BUN/Creatinine Ratio 13.8 (9-20) Glucose 121 H (80-116) mg/dL Calcium 9.4 (8.6-10.2) mg/dL Total Bilirubin 1.0 (0.1-1.3) mg/dL AST 73 H (5-25) IU/L ALT 42 H (12-36) U/L Alkaline Phosphatase 88 (56-112) IU/L Creatine Kinase 1333 H* (60-160) IU/L Troponin I (4.0-60.3) pg/mL Total Protein 7.9 (6.0-8.0) g/dL Albumin 3.4 (3.2-4.6) g/dL Globulin 4.5 g/dL Albumin/Globulin Ratio 0.8 Urine Color (YELLOW) Urine Appearance (CLEAR) Urine pH (5.0-6.5) Ur Specific [place] (1.010-1.025) Urine Protein (NEGATIVE) mg/dL Urine Glucose (UA) (NORMAL) mg/dL Urine Ketones (NEGATIVE) mg/dL Urine Occult Blood (NEGATIVE) Urine Nitrite (NEGATIVE) Urine Bilirubin (NEGATIVE) Urine Urobilinogen (NEGATIVE) mg/dL Ur Leukocyte Esterase (NEGATIVE) Urine RBC (0-5) Urine WBC (0-5) Ur Squamous Epith Cells (NS,R,O) Urine Bacteria (NS) SARS-CoV-2 RNA (YURI) Negative (NEGATIVE) 08/13/21 08/13/21 08/14/21 Range/Units 13:32 15:00 06:35 WBC (3.0-10.3) x10-3/uL RBC (3.60-5.20) x10(6)uL Hgb (11.4-15.5) g/dL Hct (34.2-48.2) % MCV (76.7-100.5) fL MCH (23.9-33.9) pg MCHC (31.9-34.8) g/dL RDW (12.3-16.5) % Plt Count (151-488) x10(3)uL MPV (7.1-12.4) fL Neut % (Auto) (30.8-76.2) % Lymph % (Auto) (18.4-52.1) % Davis % (Auto) (4.4-15.7) % Eos % (Auto) (0.6-8.1) % Baso % (Auto) (0.2-1.5) % Neut # (Auto) (1.5-6.3) x10-3/uL Lymph # (Auto) (1.0-4.4) x10-3/uL Davis # (Auto) (0.3-1.0) x10-3/uL Eos # (Auto) (0.0-0.8) x10-3/uL Baso # (Auto) (0.0-0.1) x10-3/uL Sodium 146 H (135-145) mmol/L Potassium 3.8 (3.5-5.3) mmol/L Chloride 110 D (100-110) mmol/L Carbon Dioxide 28 (21-32) mmol/L BUN 12 (7-18) mg/dL Creatinine 0.8 (0.55-1.02) mg/dL Est Cr Clr Drug Dosing 59.09 Estimated GFR (MDRD) > 60 (>60) BUN/Creatinine Ratio 15.0 (9-20) Glucose 102 (80-116) mg/dL Calcium 8.8 (8.6-10.2) mg/dL Total Bilirubin (0.1-1.3) mg/dL AST (5-25) IU/L ALT (12-36) U/L Alkaline Phosphatase (56-112) IU/L Creatine Kinase 468 H* (60-160) IU/L Troponin I 15.8 (4.0-60.3) pg/mL Total Protein (6.0-8.0) g/dL Albumin (3.2-4.6) g/dL Globulin g/dL Albumin/Globulin Ratio Urine Color Yellow (YELLOW) Urine Appearance Slightly cloudy (CLEAR) Urine pH 5.0 (5.0-6.5) Ur Specific [place] 1.030 H (1.010-1.025) Urine Protein Negative (NEGATIVE) mg/dL Urine Glucose (UA) Normal (NORMAL) mg/dL Urine Ketones Negative (NEGATIVE) mg/dL Urine Occult Blood Large H (NEGATIVE) Urine Nitrite Positive H (NEGATIVE) Urine Bilirubin Negative (NEGATIVE) Urine Urobilinogen Normal (NEGATIVE) mg/dL Ur Leukocyte Esterase Negative (NEGATIVE) Urine RBC 5-10 H (0-5) Urine WBC 5-10 H (0-5) Ur Squamous Epith Cells Few H (NS,R,O) Urine Bacteria Many H (NS) SARS-CoV-2 RNA (YURI) (NEGATIVE) Result Diagrams: 08/13/21 13:32 08/14/21 06:35 Jem Results Last 24 hrs: Microbiology 08/13/21 15:00 Urine Culture - Preliminary Urine, Clean Catch Gram Negative Rods Sepsis Event Note - Evaluation Sepsis Screening Result: No Definite Risk - Focused Exam Vital Signs: Vital Signs Temp Pulse Resp BP Pulse Ox 08/14/21 04:00 36.7 C 86 14 140/68 96 08/14/21 00:00 36.6 C 94 15 140/60 93 L - Problem List & Annotations (1) Frequent falls SNOMED Code(s): 558051654 Code(s): R29.6 - REPEATED FALLS Status: Acute Current Visit: Yes (2) Hypokalemia SNOMED Code(s): 84900191 Code(s): E87.6 - HYPOKALEMIA Status: Resolved Current Visit: Yes (3) Rhabdomyolysis SNOMED Code(s): 542716136 Code(s): M62.82 - RHABDOMYOLYSIS Status: Acute Current Visit: Yes (4) UTI (urinary tract infection) SNOMED Code(s): 69844579 Code(s): N39.0 - URINARY TRACT INFECTION, SITE NOT SPECIFIED Status: Acute Current Visit: Yes (5) Weakness SNOMED Code(s): 57991184 Code(s): R53.1 - WEAKNESS Status: Acute Current Visit: Yes (6) Depression SNOMED Code(s): 88066212 Code(s): F32.A - DEPRESSION, UNSPECIFIED Status: Chronic Current Visit: Yes - Problem List Review Problem List Initiated/Reviewed/Updated: Yes - My Orders Last 24 Hours: My Active Orders 08/13/21 17:18 Patient Status [ADT] Routine DVT/VTE Prophylaxis Reflex [OM.PC] Per Unit Routine 08/13/21 17:19 Antiembolic Devices [RC] .Routine 08/13/21 17:20 OT Evaluation and Treatment [CONS] Routine 08/13/21 17:21 PT Evaluation and Treatment [CONS] Routine 08/13/21 19:12 Consult to Case Management/[employer] [CONS] Routine - Plan Plan:: 1. Admit patient to observation. Trend BMP and CPK. CPK significantly improved. Hypokalemia has resolved but patient now has mild hypernatremia. Encourage fluid intake 2. Weakness: Occupational/physical therapy 3. UTI: Monitor urine culture, ceftriaxone, 1 g daily 4. Hypokalemia: Trend electrolytes, repleat electrolytes as necessary 5. DVT prophylaxis: 40 mg subcu enoxaparin daily 6. GI prophylaxis: Heart healthy diet 7. Disposition: Pending treatment efficacy and PT/OT evaluation, likely 1 to 2 days
[2021-08-14] MEDS: Venlafaxine 75 MG Cap.ER PO SCH (12:53)
[2021-08-14] MEDS: Venlafaxine 150 MG Cap.ER PO SCH (12:53)
[2021-08-14] MEDS: Enoxaparin 40 MG/0.4 ML Syringe SUBCUT SCH (17:03)
[2021-08-14] MEDS: cefTRIAXone 1 GM Vial IV SCH (17:04)
[2021-08-15] MEDS: NS + KCl 20mEq/L 1,000 ML IV SCH (06:56)
--- NOTE | 2021-08-15 08:10 | PCM.PN ---
- General Info Date of Service: 08/15/21 Admission Dx/Problem (Free Text): Admission Diagnosis/Problem Admission Diagnosis/Problem Weakness Subjective Update: Patient states that she continues to feel much better and feels stronger. She is able to get up and walk with 2 person assist. She has no acute complaints and no new pains or concerns. Functional Status: Reports: Pain Controlled, Tolerating Diet, Ambulating, Urinating - Review of Systems General: Reports: Weakness HEENT: Reports: No Symptoms Pulmonary: Reports: No Symptoms Cardiovascular: Reports: No Symptoms Gastrointestinal: Reports: No Symptoms Genitourinary: Reports: No Symptoms Musculoskeletal: Reports: Other (Patient still has pain in her buttocks region from her fall prior to admission) Skin: Reports: No Symptoms Neurological: Reports: Difficulty Walking, Weakness Psychiatric: Reports: No Symptoms - Patient Data Vitals - Most Recent: Last Vital Signs Temp 36.8 C 08/15/21 04:00 Pulse 81 08/15/21 04:00 Resp 18 08/15/21 04:00 BP 142/72 H 08/15/21 04:00 Pulse Ox 94 L 08/15/21 04:00 Weight - Most Recent: 90.174 kg I&O - Last 24 Hours: Intake & Output 08/14/21 08/15/21 08/15/21 22:59 06:59 14:59 Intake Total 840 1385 Output Total 150 Balance 690 1385 Lab Results Last 24 Hours: Laboratory Results - last 24 hr 08/15/21 Range/Units 06:25 Sodium 144 (135-145) mmol/L Potassium 3.9 (3.5-5.3) mmol/L Chloride 108 (100-110) mmol/L Carbon Dioxide 28 (21-32) mmol/L BUN 8 (7-18) mg/dL Creatinine 0.8 (0.55-1.02) mg/dL Est Cr Clr Drug Dosing 59.09 mL/min Estimated GFR (MDRD) > 60 (>60) BUN/Creatinine Ratio 10.0 (9-20) Glucose 100 (80-116) mg/dL Calcium 9.0 (8.6-10.2) mg/dL Creatine Kinase 258 H (60-160) IU/L Jem Results Last 24 Hours: Microbiology 08/13/21 15:00 Urine Culture - Final Urine, Clean Catch Escherichia Coli Med Orders - Current: Current Medications Acetaminophen (Acetaminophen 325 Mg Tab) 650 mg PO Q4H PRN PRN Reason: Fever/Pain Last Admin: 08/13/21 20:03 Dose: 650 mg Documented by: Ceftriaxone Sodium (Ceftriaxone 1 Gm Vial) 1 gm IV Q24H [facility] Last Admin: 08/14/21 17:04 Dose: 1 gm Documented by: Enoxaparin Sodium (Enoxaparin 40 Mg/0.4 Ml Syringe) 40 mg SUBCUT Q24H [facility] Last Admin: 08/14/21 17:03 Dose: 40 mg Documented by: Ondansetron HCl (Ondansetron 4 Mg/2 Ml Sdv) 4 mg IV Q4H PRN PRN Reason: Nausea/Vomiting Senna/Docusate Sodium (Docusate Sodium/Sennosides 50-8.6 Mg Tab) 1 tab PO BID PRN PRN Reason: Constipation Sodium Chloride (Sodium Chloride 0.9% 10 Ml Syringe) 10 ml FLUSH ASDIRECTED PRN PRN Reason: Keep Vein Open Last Admin: 08/14/21 17:04 Dose: 10 ml Documented by: Tramadol HCl (Tramadol 50 Mg Tab) 50 mg PO Q6H PRN PRN Reason: Pain Venlafaxine HCl (Venlafaxine 75 Mg Cap.Er) 75 mg PO DAILY [facility] Last Admin: 08/14/21 12:53 Dose: 75 mg Documented by: Venlafaxine HCl (Venlafaxine 150 Mg Cap.Er) 150 mg PO DAILY [facility] Last Admin: 08/14/21 12:53 Dose: 150 mg Documented by: Discontinued Medications Sodium Chloride (Normal Saline) 1,000 mls @ 999 mls/hr IV ASDIRECTED [facility] Last Admin: 08/13/21 14:20 Dose: 999 mls/hr Documented by: Potassium Chloride/Sodium Chloride (Normal Saline With 20 Meq Kcl) 1,000 mls @ 125 mls/hr IV Q8H [facility] Last Admin: 08/14/21 18:14 Dose: 125 mls/hr Documented by: Potassium Chloride/Sodium Chloride (Normal Saline With 20 Meq Kcl) 1,000 mls @ 75 mls/hr IV ASDIRECTED [facility] Last Admin: 08/15/21 06:56 Dose: 75 mls/hr Documented by: Comments:: Patient was lying in bed, awake, alert, pleasant. I had to have the nurse help me but the patient was able to pull and help herself get up and sit on the side of the bed. Once sitting on the side of the bed she was able to sit during the interview and exam. - Exam Quality Assessment: Supplemental Oxygen, DVT Prophylaxis Urinary Catheter Total Time: 0Days 10Hours General: Alert, Oriented, Cooperative, No Acute Distress HEENT: EOMI Neck: Supple Lungs: Clear to Auscultation Cardiovascular: Regular Rate, Regular Rhythm GI/Abdominal Exam: Normal Bowel Sounds, Soft, Non-Tender Back Exam: Normal Inspection Extremities: Pedal Edema Peripheral Pulses: 2+: Radial (L), Radial (R), Dorsalis Pedis (L), Dorsalis Pedis (R) Skin: Warm, Dry Neurological: No New Focal Deficit Psy/Mental Status: Alert, Normal Affect, Normal Mood - Patient Data Lab Results Last 24 hrs: Laboratory Results - last 24 hr 08/15/21 Range/Units 06:25 Sodium 144 (135-145) mmol/L Potassium 3.9 (3.5-5.3) mmol/L Chloride 108 (100-110) mmol/L Carbon Dioxide 28 (21-32) mmol/L BUN 8 (7-18) mg/dL Creatinine 0.8 (0.55-1.02) mg/dL Est Cr Clr Drug Dosing 59.09 mL/min Estimated GFR (MDRD) > 60 (>60) BUN/Creatinine Ratio 10.0 (9-20) Glucose 100 (80-116) mg/dL Calcium 9.0 (8.6-10.2) mg/dL Creatine Kinase 258 H (60-160) IU/L Result Diagrams: 08/13/21 13:32 08/15/21 06:25 Jem Results Last 24 hrs: Microbiology 08/13/21 15:00 Urine Culture - Final Urine, Clean Catch Escherichia Coli Sepsis Event Note - Evaluation Sepsis Screening Result: No Definite Risk - Focused Exam Vital Signs: Vital Signs Temp Pulse Resp BP Pulse Ox 08/15/21 04:00 36.8 C 81 18 142/72 H 94 L - Problem List & Annotations (1) Frequent falls SNOMED Code(s): 284591323 Code(s): R29.6 - REPEATED FALLS Status: Acute Current Visit: Yes (2) Hypokalemia SNOMED Code(s): 22969871 Code(s): E87.6 - HYPOKALEMIA Status: Resolved Current Visit: Yes (3) Rhabdomyolysis SNOMED Code(s): 017671746 Code(s): M62.82 - RHABDOMYOLYSIS Status: Acute Current Visit: Yes (4) UTI (urinary tract infection) SNOMED Code(s): 19281703 Code(s): N39.0 - URINARY TRACT INFECTION, SITE NOT SPECIFIED Status: Acute Current Visit: Yes (5) Weakness SNOMED Code(s): 90453948 Code(s): R53.1 - WEAKNESS Status: Acute Current Visit: Yes (6) Depression SNOMED Code(s): 54500171 Code(s): F32.A - DEPRESSION, UNSPECIFIED Status: Chronic Current Visit: Yes (7) Hypernatremia SNOMED Code(s): 601559567 Code(s): E87.0 - HYPEROSMOLALITY AND HYPERNATREMIA Status: Resolved Current Visit: Yes - Problem List Review Problem List Initiated/Reviewed/Updated: Yes - My Orders Last 24 Hours: My Active Orders 08/14/21 14:36 Admission Status [Patient Status] [ADT] Routine - Plan Plan:: 1. Admit patient to observation. Trend BMP and CPK. CPK significantly improved. Stop normal saline/supplemental fluids at this time, this will help encourage fluid intake. 2. Weakness: Occupational/physical therapy. Patient improving but still needs assistance to get up and 2 person assistance to walk 3. UTI: Monitor urine culture, ceftriaxone, 1 g daily. Urine culture shows gram-negative rods but identification and sensitivities are not yet available 4. Hypokalemia, hypernatremia -solved at this time: Trend electrolytes, repleat electrolytes as necessary 5. DVT prophylaxis: 40 mg subcu enoxaparin daily 6. GI prophylaxis: Heart healthy diet 7. Disposition: Pending treatment efficacy and PT/OT evaluation, patient is improving but still weak, likely 1 to 2 days
[2021-08-15] MEDS: Venlafaxine 150 MG Cap.ER PO SCH (08:35)
[2021-08-15] MEDS: Venlafaxine 75 MG Cap.ER PO SCH (08:36)
[2021-08-15] MEDS: Enoxaparin 40 MG/0.4 ML Syringe SUBCUT SCH (17:36)
[2021-08-15] MEDS: cefTRIAXone 1 GM Vial IV SCH (17:36)
--- NOTE | 2021-08-16 07:44 | PCM.PN ---
- General Info Date of Service: 08/16/21 Admission Dx/Problem (Free Text): Admission Diagnosis/Problem Admission Diagnosis/Problem Weakness Subjective Update: Patient states that she continues to feel much better and feels stronger. She is able to get up and walk with 1 person assist. She has no acute complaints and no new pains or concerns. Functional Status: Reports: Pain Controlled, Tolerating Diet, Ambulating, Urinating - Review of Systems General: Reports: Weakness HEENT: Reports: No Symptoms Pulmonary: Reports: No Symptoms Cardiovascular: Reports: No Symptoms Gastrointestinal: Reports: No Symptoms Genitourinary: Reports: No Symptoms Musculoskeletal: Reports: No Symptoms Skin: Reports: No Symptoms Neurological: Reports: Difficulty Walking, Weakness Psychiatric: Reports: No Symptoms - Patient Data Vitals - Most Recent: Last Vital Signs Temp 36.6 C 08/15/21 16:00 Pulse 80 08/15/21 16:00 Resp 18 08/15/21 16:00 BP 139/72 08/15/21 16:00 Pulse Ox 96 08/15/21 16:00 Weight - Most Recent: 90.129 kg Lab Results Last 24 Hours: Laboratory Results - last 24 hr 08/16/21 Range/Units 06:10 Sodium 142 (135-145) mmol/L Potassium 3.8 (3.5-5.3) mmol/L Chloride 107 (100-110) mmol/L Carbon Dioxide 27 (21-32) mmol/L BUN 8 (7-18) mg/dL Creatinine 0.8 (0.55-1.02) mg/dL Est Cr Clr Drug Dosing 59.09 mL/min Estimated GFR (MDRD) > 60 (>60) BUN/Creatinine Ratio 10.0 (9-20) Glucose 95 (80-116) mg/dL Calcium 9.3 (8.6-10.2) mg/dL Creatine Kinase 149 (60-160) IU/L Jem Results Last 24 Hours: Microbiology 08/13/21 15:00 Urine Culture - Final Urine, Clean Catch Escherichia Coli Med Orders - Current: Current Medications Acetaminophen (Acetaminophen 325 Mg Tab) 650 mg PO Q4H PRN PRN Reason: Fever/Pain Last Admin: 08/13/21 20:03 Dose: 650 mg Documented by: Amoxicillin/Clavulanate Potassium (Amoxicillin/Clavulanate K 875-125 Mg Tab) 1 tab PO Q12H EBONI Enoxaparin Sodium (Enoxaparin 40 Mg/0.4 Ml Syringe) 40 mg SUBCUT Q24H [facility] Last Admin: 08/15/21 17:36 Dose: 40 mg Documented by: Ondansetron HCl (Ondansetron 4 Mg/2 Ml Sdv) 4 mg IV Q4H PRN PRN Reason: Nausea/Vomiting Senna/Docusate Sodium (Docusate Sodium/Sennosides 50-8.6 Mg Tab) 1 tab PO BID PRN PRN Reason: Constipation Sodium Chloride (Sodium Chloride 0.9% 10 Ml Syringe) 10 ml FLUSH ASDIRECTED PRN PRN Reason: Keep Vein Open Last Admin: 08/14/21 17:04 Dose: 10 ml Documented by: Tramadol HCl (Tramadol 50 Mg Tab) 50 mg PO Q6H PRN PRN Reason: Pain Venlafaxine HCl (Venlafaxine 75 Mg Cap.Er) 75 mg PO DAILY [facility] Last Admin: 08/15/21 08:36 Dose: 75 mg Documented by: Venlafaxine HCl (Venlafaxine 150 Mg Cap.Er) 150 mg PO DAILY [facility] Last Admin: 08/15/21 08:35 Dose: 150 mg Documented by: Discontinued Medications Ceftriaxone Sodium (Ceftriaxone 1 Gm Vial) 1 gm IV Q24H [facility] Last Admin: 08/15/21 17:36 Dose: 1 gm Documented by: Sodium Chloride (Normal Saline) 1,000 mls @ 999 mls/hr IV ASDIRECTED [facility] Last Admin: 08/13/21 14:20 Dose: 999 mls/hr Documented by: Potassium Chloride/Sodium Chloride (Normal Saline With 20 Meq Kcl) 1,000 mls @ 125 mls/hr IV Q8H [facility] Last Admin: 08/14/21 18:14 Dose: 125 mls/hr Documented by: Potassium Chloride/Sodium Chloride (Normal Saline With 20 Meq Kcl) 1,000 mls @ 75 mls/hr IV ASDIRECTED [facility] Last Admin: 08/15/21 06:56 Dose: 75 mls/hr Documented by: Comments:: Patient was lying in bed supine, sleeping. She was easily awoken, alert, pleasant. She did require me to help her sit up in bed but this was only 1 person instead of to like yesterday. She was not able to hold herself up during the entire physical exam - Exam Quality Assessment: Supplemental Oxygen, DVT Prophylaxis Urinary Catheter Total Time: 0Days 10Hours General: Alert, Oriented, Cooperative, No Acute Distress HEENT: EOMI Neck: Supple Lungs: Crackles, Other (Mild, scattered bibasilar crackles) Cardiovascular: Regular Rate, Regular Rhythm GI/Abdominal Exam: Normal Bowel Sounds, Soft, Non-Tender Back Exam: Normal Inspection Extremities: Pedal Edema, Other (Trace edema) Peripheral Pulses: 1+: Dorsalis Pedis (L), Dorsalis Pedis (R), 2+: Radial (L), Radial (R) Skin: Warm, Dry Neurological: No New Focal Deficit Psy/Mental Status: Alert, Normal Affect, Normal Mood - Patient Data Lab Results Last 24 hrs: Laboratory Results - last 24 hr 08/16/21 Range/Units 06:10 Sodium 142 (135-145) mmol/L Potassium 3.8 (3.5-5.3) mmol/L Chloride 107 (100-110) mmol/L Carbon Dioxide 27 (21-32) mmol/L BUN 8 (7-18) mg/dL Creatinine 0.8 (0.55-1.02) mg/dL Est Cr Clr Drug Dosing 59.09 mL/min Estimated GFR (MDRD) > 60 (>60) BUN/Creatinine Ratio 10.0 (9-20) Glucose 95 (80-116) mg/dL Calcium 9.3 (8.6-10.2) mg/dL Creatine Kinase 149 (60-160) IU/L Result Diagrams: 08/13/21 13:32 08/16/21 06:10 Jem Results Last 24 hrs: Microbiology 08/13/21 15:00 Urine Culture - Final Urine, Clean Catch Escherichia Coli Sepsis Event Note - Evaluation Sepsis Screening Result: No Definite Risk - Problem List & Annotations (1) Frequent falls SNOMED Code(s): 599795804 Code(s): R29.6 - REPEATED FALLS Status: Acute Current Visit: Yes (2) Hypokalemia SNOMED Code(s): 28181377 Code(s): E87.6 - HYPOKALEMIA Status: Resolved Current Visit: Yes (3) Rhabdomyolysis SNOMED Code(s): 988388836 Code(s): M62.82 - RHABDOMYOLYSIS Status: Acute Current Visit: Yes (4) UTI (urinary tract infection) SNOMED Code(s): 68629581 Code(s): N39.0 - URINARY TRACT INFECTION, SITE NOT SPECIFIED Status: Acute Current Visit: Yes (5) Weakness SNOMED Code(s): 04774760 Code(s): R53.1 - WEAKNESS Status: Acute Current Visit: Yes (6) Depression SNOMED Code(s): 51680065 Code(s): F32.A - DEPRESSION, UNSPECIFIED Status: Chronic Current Visit: Yes (7) Hypernatremia SNOMED Code(s): 604717399 Code(s): E87.0 - HYPEROSMOLALITY AND HYPERNATREMIA Status: Resolved Current Visit: Yes - Problem List Review Problem List Initiated/Reviewed/Updated: Yes - My Orders Last 24 Hours: My Active Orders 08/15/21 17:48 Antiembolic Devices [RC] .Routine 08/15/21 17:51 WILMAR Hose [Antiembolic Hose] [OM.PC] Routine 08/16/21 08:00 Amoxicillin/Clavulanate K [Augmentin 875 MG/125 MG] 1 tab PO Q12H - Plan Plan:: 1. Admit patient to observation. Labs have grossly normalized at this time. Patient transition to oral antibiotics as below 2. Weakness: Occupational/physical therapy. Patient improving but still needs assistance to get up and 2 person assistance to walk 3. UTI: Urine culture and sensitivity shows Escherichia coli, pansensitive. We will stop ceftriaxone and begin oral Augmentin at this time 4. Hypokalemia, hypernatremia -resolved at this time: Trend electrolytes, repleat electrolytes as necessary 5. DVT prophylaxis: 40 mg subcu enoxaparin daily 6. GI prophylaxis: Heart healthy diet 7. Disposition: Pending treatment efficacy and PT/OT evaluation, patient is improving but still weak, likely transition to swing bed tomorrow secondary to significant weakness
[2021-08-16] MEDS: Venlafaxine 75 MG Cap.ER PO SCH (08:46)
[2021-08-16] MEDS: Amoxicillin/Clavulanate K 875-125 MG Tab PO SCH ×2 (08:46→20:19)
[2021-08-16] MEDS: Venlafaxine 150 MG Cap.ER PO SCH (08:47)
[2021-08-16] MEDS: Enoxaparin 40 MG/0.4 ML Syringe SUBCUT SCH (17:30)
[2021-08-17] MEDS: Amoxicillin/Clavulanate K 875-125 MG Tab PO SCH (07:48)
[2021-08-17] MEDS: Venlafaxine 75 MG Cap.ER PO SCH (08:02)
[2021-08-17] MEDS: Venlafaxine 150 MG Cap.ER PO SCH (08:02)
--- NOTE | 2021-08-19 05:48 | DISCH ---
DISCHARGE DATE: 08/17/2021 REASON FOR ADMISSION: 1. UTI. 2. Frequent falls. 3. Rhabdomyolysis. 4. Depression.. 5. Generalized weakness. DISCHARGE DIAGNOSES: 1. Urinary tract infection. 2. Frequent falls. 3. Rhabdomyolysis. 4. Depression.. 5. Generalized weakness. HISTORY OF PRESENT ILLNESS AND COURSE: Krystin is a 75-year-old female who was found on the floor. She was admitted for weakness and rhabdomyolysis. She was given fluids and treated for urinary tract infection. She has improved, but still very weak and unable to return home independently. We will discharge her to swing bed for rehab physical therapy with the hope of return to community- based living. I spent more than 35 minutes in the discharge of the patient. /[id number] CASSY/ABDOUL
== END 2021-08-17 09:56 | disposition swing bed (61) | DRG 558 ==
LOC: FB.ED 12:57 → FB.MS 15:56 → OBSVTOIN 08-14 14:36
PROVIDERS: ADMIT Emergency Medicine; ATTEND Family Medicine
DX: R53.1 Weakness (principal); R29.6 Repeated falls; M62.82 Rhabdomyolysis; N39.0 Urinary tract infection, site not specified; E87.0 Hyperosmolality and hypernatremia; E87.6 Hypokalemia; B96.20 Unspecified Escherichia coli [E. coli] as the cause of diseases classified elsewhere; F32.A Depression, unspecified; Z91.013 Allergy to seafood; Z79.899 Other long term (current) drug therapy; Z20.822 Contact with and (suspected) exposure to COVID-19
CPT/HCPCS: 36415; 71045; 72110; 72220; 80048; 80053; 81001; 82550; 84484; 85025; 87086; 87088; 87186; 93005; 93010; 96365; 96366; 96372; 96375; 97116-GP; 97161-GP; 97166-GO; 97530-GO; 97530-GP; 97535-GO; 99285; 99285-25; A9270-GY; G0378; J0696; J1650; J3480; J7030; U0002

== ENCOUNTER 2021-08-17 10:00 | Inpatient (IN) | payer MEDICAID, MEDICARE ==
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
[2021-08-18] MEDS: Venlafaxine 75 MG Cap.ER PO SCH (08:52)
[2021-08-18] MEDS: Venlafaxine 150 MG Cap.ER PO SCH (08:52)
[2021-08-19] MEDS: Venlafaxine 150 MG Cap.ER PO SCH (08:47)
[2021-08-19] MEDS: Venlafaxine 75 MG Cap.ER PO SCH (08:47)
[2021-08-20] MEDS: Venlafaxine 150 MG Cap.ER PO SCH (09:31)
[2021-08-20] MEDS: Venlafaxine 75 MG Cap.ER PO SCH (09:31)
[2021-08-21] MEDS: Venlafaxine 150 MG Cap.ER PO SCH (09:30)
[2021-08-21] MEDS: Venlafaxine 75 MG Cap.ER PO SCH (09:30)
[2021-08-22] MEDS: Venlafaxine 150 MG Cap.ER PO SCH (08:50)
[2021-08-22] MEDS: Venlafaxine 75 MG Cap.ER PO SCH (08:50)
[2021-08-23] MEDS: Venlafaxine 75 MG Cap.ER PO SCH (08:56)
[2021-08-23] MEDS: Venlafaxine 150 MG Cap.ER PO SCH (08:56)
--- NOTE | 2021-08-23 22:31 | DISCH ---
DISCHARGE DATE: 08/23/2021 REASON FOR ADMISSION: 1. Generalized weakness. 2. Frequent falls. 3. UTI. 4. Depression. 5. Rhabdomyolysis. BRIEF HISTORY AND HOSPITAL COURSE: This is a 75-year-old female admitted from the floor for swing bed rehab. She had initially presented having fallen at home and was found to have rhabdomyolysis, which was treated successfully with IV fluids. She also had antibiotic therapy for UTI. She has now improved after rehab, but will need home health for continuation of physical therapy and occupational therapy and nursing care at home. No medication changes were made. I spent more than 35 minutes in the discharge of the patient. /[id number] CASSY/ABDOUL
== END 2021-08-23 09:55 | disposition home health service (06) | DRG 948 ==
LOC: FB.MS 10:00
PROVIDERS: ADMIT Family Medicine; ATTEND Family Medicine
DX: R53.1 Weakness (principal); N30.00 Acute cystitis without hematuria; F32.A Depression, unspecified; H54.7 Unspecified visual loss; F41.9 Anxiety disorder, unspecified; E66.9 Obesity, unspecified; E87.6 Hypokalemia; T79.6XXD Traumatic ischemia of muscle, subsequent encounter; Z91.013 Allergy to seafood; Z88.1 Allergy status to other antibiotic agents; Z68.31 Body mass index [BMI] 31.0-31.9, adult
CPT/HCPCS: 97110-GO; 97110-GP; 97112-GP; 97116-GP; 97530-GO; 97530-GP; 97535-GO; A9270-GY

== ENCOUNTER 2022-12-04 18:37 | Inpatient (IN) | payer MEDICAID, MEDICARE ==
[2022-12-04] MEDS ORDERED: Sodium Chloride 0.9% 1,000 ML IV SCH ×2 (19:15→21:30)
[2022-12-04] MEDS: Sodium Chloride 0.9% 10 ML Syringe FLUSH PRN (19:37)
[2022-12-04 19:54] LABS: ESTIMATED GFR 47 mL/min (>60)
[2022-12-04] MEDS ORDERED: Ondansetron 4 MG/2 ML SDV IV PRN (21:54)
[2022-12-04] MEDS: Enoxaparin 40 MG/0.4 ML Syringe SUBCUT SCH (23:30)
[2022-12-05 06:52] LABS: ESTIMATED GFR 66 mL/min (>60)
[2022-12-05] MEDS: Venlafaxine 150 MG Cap.ER PO SCH (08:26)
[2022-12-05] MEDS: Venlafaxine 75 MG Cap.ER PO SCH (08:27)
[2022-12-05] MEDS: Lactated Ringers 1,000 ML IV SCH (08:37)
[2022-12-05] MEDS: Enoxaparin 40 MG/0.4 ML Syringe SUBCUT SCH (21:16)
[2022-12-06] MEDS: Lactated Ringers 1,000 ML IV SCH ×2 (00:15→18:05)
[2022-12-06 07:13] LABS: ESTIMATED GFR 66 mL/min (>60)
[2022-12-06] MEDS: Venlafaxine 75 MG Cap.ER PO SCH (09:33)
[2022-12-06] MEDS: Venlafaxine 150 MG Cap.ER PO SCH (09:33)
[2022-12-06] MEDS ORDERED: Acetaminophen 325 MG Tab PO PRN (11:54)
[2022-12-06] MEDS: Enoxaparin 40 MG/0.4 ML Syringe SUBCUT SCH (21:15)
[2022-12-07 07:11] LABS: ESTIMATED GFR 89 mL/min (>60)
[2022-12-07] MEDS: Lactated Ringers 1,000 ML IV SCH (07:32)
[2022-12-07] MEDS: Venlafaxine 150 MG Cap.ER PO SCH (08:45)
[2022-12-07] MEDS: Venlafaxine 75 MG Cap.ER PO SCH (08:45)
[2022-12-07 10:20] LABS: CORONAVIRUS COVID-19 NAA POSITIVE (NEGATIVE)
[2022-12-07] MEDS ORDERED: valACYclovir 500 MG Tab ONE (13:10)
[2022-12-07] MEDS: valACYclovir 1,000 MG Tab PO SCH (13:18)
[2022-12-07] MEDS: Enoxaparin 40 MG/0.4 ML Syringe SUBCUT SCH (22:12)
[2022-12-08 07:05] LABS: ESTIMATED GFR 76 mL/min (>60)
[2022-12-08] MEDS: Venlafaxine 150 MG Cap.ER PO SCH (08:33)
[2022-12-08] MEDS: Venlafaxine 75 MG Cap.ER PO SCH (08:33)
[2022-12-08] MEDS: valACYclovir 1,000 MG Tab PO SCH ×2 (10:15→11:38)
[2022-12-08] MEDS: Enoxaparin 40 MG/0.4 ML Syringe SUBCUT SCH (21:07)
[2022-12-08] MEDS: Sodium Chloride 0.9% 10 ML Syringe FLUSH PRN (21:07)
[2022-12-09 07:15] LABS: ESTIMATED GFR 76 mL/min (>60)
[2022-12-09] MEDS ORDERED: Polyethylene Glycol 3350 Powder 17 GM Packet PO PRN (08:51)
[2022-12-09] MEDS: Venlafaxine 150 MG Cap.ER PO SCH (09:56)
[2022-12-09] MEDS: Venlafaxine 75 MG Cap.ER PO SCH (09:56)
[2022-12-09] MEDS: valACYclovir 1,000 MG Tab PO SCH (09:56)
[2022-12-09] MEDS: Enoxaparin 40 MG/0.4 ML Syringe SUBCUT SCH (21:54)
[2022-12-10] MEDS: Venlafaxine 75 MG Cap.ER PO SCH (08:39)
[2022-12-10] MEDS: Venlafaxine 150 MG Cap.ER PO SCH (08:39)
[2022-12-10] MEDS: valACYclovir 1,000 MG Tab PO SCH (08:39)
== END 2022-12-10 14:30 | disposition swing bed (61) | DRG 564 ==
LOC: FB.ED 18:37 → FB.MS 21:54
PROVIDERS: ADMIT Family Medicine; ATTEND Family Medicine
DX: T79.6XXA Traumatic ischemia of muscle, initial encounter (principal); U07.1 COVID-19; N17.9 Acute kidney failure, unspecified; B00.1 Herpesviral vesicular dermatitis; F41.9 Anxiety disorder, unspecified; Z66 Do not resuscitate; E66.9 Obesity, unspecified; R29.6 Repeated falls; F32.A Depression, unspecified; E86.0 Dehydration; R74.01 Elevation of levels of liver transaminase levels; Z98.890 Other specified postprocedural states; W18.30XA Fall on same level, unspecified, initial encounter; Y92.098 Other place in other non-institutional residence as the place of occurrence of the external cause; Z68.31 Body mass index [BMI] 31.0-31.9, adult
CPT/HCPCS: 0241U; 36415; 71046; 80053; 82247; 82248; 82550; 85025; 97110; 97116; 97161; 97165; 97530; 97535; 51702; 70450; 71045; 72192; 73562-RT; 81001; 84484; 85610; 85730; 93005; 93010; 96360; 96361; 99285; 99285-25; A9270-GY; J1650; J3490; J7030; J7120

== ENCOUNTER 2022-12-10 14:32 | Inpatient (IN) | payer MEDICARE ==
[2022-12-10] MEDS ORDERED: Acetaminophen/HYDROcodone 325-5 MG Tab PO PRN (14:34)
[2022-12-10] MEDS ORDERED: Polyethylene Glycol 3350 Powder 17 GM Packet PO PRN (14:40)
[2022-12-10] MEDS: Enoxaparin 40 MG/0.4 ML Syringe SUBCUT SCH (21:17)
[2022-12-11] MEDS: Venlafaxine 150 MG Cap.ER PO SCH (09:23)
[2022-12-11] MEDS: Venlafaxine 75 MG Cap.ER PO SCH (09:23)
[2022-12-11] MEDS: valACYclovir 1,000 MG Tab PO SCH (09:23)
[2022-12-11] MEDS: Acetaminophen 325 MG Tab PO PRN (19:52)
[2022-12-11] MEDS: Enoxaparin 40 MG/0.4 ML Syringe SUBCUT SCH (20:05)
[2022-12-12] MEDS: Acetaminophen 325 MG Tab PO PRN ×2 (06:45→10:51)
[2022-12-12] MEDS: valACYclovir 1,000 MG Tab PO SCH (09:11)
[2022-12-12] MEDS: Venlafaxine 150 MG Cap.ER PO SCH (09:11)
[2022-12-12] MEDS: Venlafaxine 75 MG Cap.ER PO SCH (09:11)
[2022-12-12] MEDS: Enoxaparin 40 MG/0.4 ML Syringe SUBCUT SCH (20:26)
[2022-12-13] MEDS: Venlafaxine 75 MG Cap.ER PO SCH (09:03)
[2022-12-13] MEDS: Venlafaxine 150 MG Cap.ER PO SCH (09:03)
[2022-12-13] MEDS: Enoxaparin 40 MG/0.4 ML Syringe SUBCUT SCH (20:25)
[2022-12-14] MEDS: Venlafaxine 75 MG Cap.ER PO SCH (08:18)
[2022-12-14] MEDS: Venlafaxine 150 MG Cap.ER PO SCH (08:18)
[2022-12-14] MEDS: Enoxaparin 40 MG/0.4 ML Syringe SUBCUT SCH (20:01)
[2022-12-15] MEDS: Venlafaxine 75 MG Cap.ER PO SCH (09:04)
[2022-12-15] MEDS: Venlafaxine 150 MG Cap.ER PO SCH (09:04)
[2022-12-15] MEDS: Enoxaparin 40 MG/0.4 ML Syringe SUBCUT SCH (20:26)
[2022-12-16] MEDS: Venlafaxine 150 MG Cap.ER PO SCH (08:49)
[2022-12-16] MEDS: Venlafaxine 75 MG Cap.ER PO SCH (08:49)
[2022-12-16] MEDS: Acetaminophen 325 MG Tab PO PRN (08:49)
[2022-12-16] MEDS: Enoxaparin 40 MG/0.4 ML Syringe SUBCUT SCH (20:48)
[2022-12-17] MEDS: Venlafaxine 75 MG Cap.ER PO SCH (10:41)
[2022-12-17] MEDS: Venlafaxine 150 MG Cap.ER PO SCH (10:41)
[2022-12-17] MEDS: Enoxaparin 40 MG/0.4 ML Syringe SUBCUT SCH (20:10)
[2022-12-18] MEDS: Venlafaxine 150 MG Cap.ER PO SCH (08:21)
[2022-12-18] MEDS: Venlafaxine 75 MG Cap.ER PO SCH (08:21)
[2022-12-18 10:42] VITALS: BP 117/66; PULSE 87
== END 2022-12-18 11:00 | disposition home or self-care (01) | DRG 948 ==
LOC: FB.MS 14:32
PROVIDERS: ADMIT Family Medicine; ATTEND Student in an Organized Health Care Education/Training Program
DX: R53.1 Weakness (principal); N17.9 Acute kidney failure, unspecified; T79.6XXD Traumatic ischemia of muscle, subsequent encounter; F41.9 Anxiety disorder, unspecified; E66.9 Obesity, unspecified; R29.6 Repeated falls; Z66 Do not resuscitate; E86.0 Dehydration; F32.A Depression, unspecified; Z68.31 Body mass index [BMI] 31.0-31.9, adult; Z91.013 Allergy to seafood
CPT/HCPCS: 97110-GP; 97116-GP; 97129-GO; 97530-GO; 97530-GP; 97535-GO; 99305; 99315; A9270-GY; J1650

== ENCOUNTER 2023-11-11 23:19 | Inpatient (IN) | payer MEDICARE ==
[2023-11-12] MEDS: Sodium Chloride 0.9% 1,000 ML IV SCH (00:05)
[2023-11-12 00:13] LABS: BASOPHILS PERCENT AUTO 0.2 % (0.2-1.5); HEMATOCRIT 36.6 % (34.2-48.2); HEMOGLOBIN 12.4 g/dL (11.4-15.5); LYMPHOCYTES ABSOLUTE AUTO 0.7 x10-3/uL (1.0-4.4); LYMPHOCYTES PERCENT AUTO 10.1 % (18.4-52.1); MEAN CORPUSCULAR HEMOGLOBIN 26.6 pg (23.9-33.9); MEAN CORPUSCULAR HGB CONC 33.9 g/dL (31.9-34.8); MEAN CORPUSCULAR VOLUME 78.7 fL (76.7-100.5); MEAN PLATELET VOLUME 7.1 fL (7.1-12.4); MONOCYTES PERCENT AUTO 14.5 % (4.4-15.7); NEUTROPHILS ABSOLUTE AUTO 4.9 x10-3/uL (1.5-6.3); NEUTROPHILS PERCENT AUTO 75.2 % (30.8-76.2); PLATELET COUNT,PLT 251 x10(3)uL (151-488); RED BLOOD CELL COUNT 4.66 x10(6)uL (3.60-5.20); RED CELL DISTRIBUTION WIDTH 14.2 % (12.3-16.5); WHITE BLOOD CELL COUNT,WBC 6.6 x10-3/uL (3.0-10.3)
[2023-11-12 00:18] LABS: BLOOD UREA NITROGEN,BUN 20 mg/dL (7-18); CALCIUM 9.4 mg/dL (8.6-10.2); CARBON DIOXIDE,CO2 27 mmol/L (21-32); CHLORIDE,CL 101 mmol/L (100-110); ESTIMATED GFR 58 mL/min (>60); GLUCOSE RANDOM 140 mg/dL (80-116); POTASSIUM,K 3.7 mmol/L (3.5-5.3); SODIUM,NA 137 mmol/L (135-145)
[2023-11-12 00:24] LABS: A/G RATIO 0.8; ALANINE AMINOTRANSFERASE,ALT 14 U/L (12-36); ALBUMIN 3.4 g/dL (3.2-4.6); ALKALINE PHOSPHATASE 76 IU/L (56-112); ASPARTATE AMNIOTRANSFERASE,AST 17 IU/L (5-25); BILIRUBIN TOTAL 1.2 mg/dL (0.1-1.3); PROTEIN TOTAL,TP 7.5 g/dL (6.0-8.0)
[2023-11-12 00:44] LABS: INFLUENZA A NAA NEGATIVE (NEGATIVE); INFLUENZA B NAA NEGATIVE (NEGATIVE); RESPIRATORY SYNCYTIAL VIR NAA NEGATIVE (NEGATIVE)
[2023-11-12 00:45] LABS: CORONAVIRUS COVID-19 NAA NEGATIVE (NEGATIVE)
[2023-11-12 01:14] LABS: APPEARANCE,URINE SLIGHTLY CLOUDY (CLEAR); BACTERIA,URINE FEW (NS); BILIRUBIN,URINE NEGATIVE (NEGATIVE); COLOR,URINE YELLOW (YELLOW); GLUCOSE,URINE NORMAL (NORMAL); KETONES,URINE NEGATIVE (NEGATIVE); LEUKOCYTE ESTERASE,URINE NEGATIVE (NEGATIVE); NITRITE,URINE NEGATIVE (NEGATIVE); OCCULT BLOOD,URINE LARGE (NEGATIVE); PROTEIN,URINE NEGATIVE (NEGATIVE); SQUAMOUS EPITHELIAL CELLS,UR FEW (NS,R,O); UROBILINOGEN,URINE NORMAL (NEGATIVE); WBC,URINE 0-5 (0-5)
[2023-11-12] MEDS ORDERED: Polyethylene Glycol 3350 Powder 17 GM Packet PO PRN (01:56)
[2023-11-12] MEDS ORDERED: Acetaminophen 650 MG Supp RECTAL PRN (01:59)
[2023-11-12] MEDS ORDERED: Ondansetron 4 MG/2 ML SDV IV PRN (01:59)
[2023-11-12] MEDS: Azithromycin 500 MG in Sodium Chloride 0.9% 250 ML IV SCH (03:23)
[2023-11-12] MEDS: Acetaminophen 325 MG Tab PO PRN (03:26)
[2023-11-12] MEDS: cefTRIAXone 1 GM Vial IVPUSH SCH (03:27)
[2023-11-12] MEDS: Sodium Chloride 0.9% 10 ML Syringe FLUSH PRN (04:28)
[2023-11-12] MEDS: Enoxaparin 40 MG/0.4 ML Syringe SUBCUT SCH (04:28)
[2023-11-12] MEDS: D5 1/2 NS w/ 20 mEq/L KCl 1,000 ML IV SCH ×2 (04:29→15:34)
[2023-11-12] MEDS: busPIRone 15 MG Tab PO SCH (08:42)
[2023-11-12] MEDS: Venlafaxine 75 MG Cap.ER PO SCH (08:42)
[2023-11-12] MEDS: Venlafaxine 150 MG Cap.ER PO SCH (08:42)
[2023-11-12] MEDS ORDERED: Loperamide 2 MG Cap PO PRN (09:47)
[2023-11-12] MEDS ORDERED: Carbamide Peroxide 6.5% Otic Soln 15 ML Bottle EARBOTH PRN (09:47)
[2023-11-12] MEDS ORDERED: guaiFENesin 100 MG/5 ML Soln 5 ML UD Cup PO PRN (09:47)
[2023-11-12] MEDS ORDERED: Magnesium Hydroxide 400 MG/5 ML Susp 30 ML Cup PO PRN (09:47)
[2023-11-12] MEDS ORDERED: Bisacodyl 10 MG Supp RECTAL PRN (09:47)
[2023-11-12] MEDS ORDERED: Acetaminophen 325 MG Tab PO PRN (09:47)
[2023-11-12] MEDS ORDERED: busPIRone 5 MG Tab PO SCH (10:00)
[2023-11-12] MEDS ORDERED: Aluminum Hydroxide/Magnesium Hydroxide Susp 30 ML Cup PO PRN (10:01)
[2023-11-13 06:17] LABS: BASOPHILS PERCENT AUTO 0.8 % (0.2-1.5); EOSINOPHILS PERCENT AUTO 0.5 % (0.6-8.1); HEMATOCRIT 36.1 % (34.2-48.2); HEMOGLOBIN 12.2 g/dL (11.4-15.5); LYMPHOCYTES ABSOLUTE AUTO 1.9 x10-3/uL (1.0-4.4); LYMPHOCYTES PERCENT AUTO 39.2 % (18.4-52.1); MEAN CORPUSCULAR HEMOGLOBIN 26.3 pg (23.9-33.9); MEAN CORPUSCULAR HGB CONC 33.7 g/dL (31.9-34.8); MEAN CORPUSCULAR VOLUME 78.1 fL (76.7-100.5); MEAN PLATELET VOLUME 6.8 fL (7.1-12.4); MONOCYTES ABSOLUTE AUTO 0.7 x10-3/uL (0.3-1.0); MONOCYTES PERCENT AUTO 13.7 % (4.4-15.7); NEUTROPHILS ABSOLUTE AUTO 2.2 x10-3/uL (1.5-6.3); NEUTROPHILS PERCENT AUTO 45.8 % (30.8-76.2); PLATELET COUNT,PLT 207 x10(3)uL (151-488); RED BLOOD CELL COUNT 4.63 x10(6)uL (3.60-5.20); RED CELL DISTRIBUTION WIDTH 14.1 % (12.3-16.5); WHITE BLOOD CELL COUNT,WBC 4.9 x10-3/uL (3.0-10.3)
[2023-11-13 06:20] LABS: BLOOD UREA NITROGEN,BUN 10 mg/dL (7-18); BUN/CREATININE RATIO 12.5 (9-20); CALCIUM 8.6 mg/dL (8.6-10.2); CARBON DIOXIDE,CO2 29 mmol/L (21-32); CHLORIDE,CL 105 mmol/L (100-110); CREATININE 0.8 mg/dL (0.55-1.02); EST CRCL DRUG DOSING (CG) 56.36 mL/min; ESTIMATED GFR 75 mL/min (>60); GLUCOSE RANDOM 116 mg/dL (80-116); POTASSIUM,K 3.9 mmol/L (3.5-5.3); SODIUM,NA 140 mmol/L (135-145)
[2023-11-13] MEDS: Enoxaparin 40 MG/0.4 ML Syringe SUBCUT SCH (09:10)
[2023-11-13 09:58] LABS: BILIRUBIN,URINE NEGATIVE (NEGATIVE); GLUCOSE,URINE NORMAL (NORMAL); KETONES,URINE NEGATIVE (NEGATIVE); LEUKOCYTE ESTERASE,URINE NEGATIVE (NEGATIVE); NITRITE,URINE NEGATIVE (NEGATIVE); OCCULT BLOOD,URINE MODERATE (NEGATIVE); PROTEIN,URINE NEGATIVE (NEGATIVE); UROBILINOGEN,URINE NORMAL (NEGATIVE)
[2023-11-13 10:08] LABS: APPEARANCE,URINE SLIGHTLY CLOUDY (CLEAR); BACTERIA,URINE FEW (NS); COLOR,URINE YELLOW (YELLOW); MUCUS,URINE FEW (NS); RBC,URINE 0-5 (0-5); SQUAMOUS EPITHELIAL CELLS,UR MODERATE (NS,R,O); WBC,URINE 0-5 (0-5)
[2023-11-14] MEDS: Gadoteridol 279.3 MG/ML 20 ML SDV IV ONE (15:24)
== END 2023-11-17 11:05 | disposition home or self-care (01) | DRG 948 ==
LOC: FB.ED 23:19 → FB.MS 11-12 01:46 → OBSVTOIN 11-12 09:45
PROVIDERS: ADMIT Family Medicine; ATTEND Family Medicine
DX: J18.9 Pneumonia, unspecified organism (principal); R53.1 Weakness; E87.20 Acidosis, unspecified; F03.93 Unspecified dementia, unspecified severity, with mood disturbance; F03.94 Unspecified dementia, unspecified severity, with anxiety; J98.11 Atelectasis; E86.0 Dehydration; E66.9 Obesity, unspecified; K76.9 Liver disease, unspecified; R79.82 Elevated C-reactive protein (CRP); R79.89 Other specified abnormal findings of blood chemistry; R31.29 Other microscopic hematuria; R26.2 Difficulty in walking, not elsewhere classified; Z97.3 Presence of spectacles and contact lenses; Z91.013 Allergy to seafood; Z86.16 Personal history of COVID-19; Z98.49 Cataract extraction status, unspecified eye; Z90.49 Acquired absence of other specified parts of digestive tract; Z79.899 Other long term (current) drug therapy
CPT/HCPCS: 0241U; 36415; 71045; 71046; 74176; 74183; 80048; 80053; 81001; 83605; 84484; 85025; 86140; 87040; 93005; 93010; 96360; 96361; 96365; 96366; 96367; 96372; 96375; 97116-GP; 97161-GP; 97165-GO; 97530-GO; 97530-GP; 97535-GO; 99222; 99231; 99232; 99238; 99285; 99285-25; A9270-GY; A9579; G0378; J0456; J0696; J1650; J3480; J3490; J7030; J7050

== ENCOUNTER 2024-03-12 13:00 | Emergency (ER) | payer MEDICARE ==
[2024-03-12 13:31] LABS: BILIRUBIN,URINE NEGATIVE (NEGATIVE); GLUCOSE,URINE NORMAL (NORMAL); KETONES,URINE NEGATIVE (NEGATIVE); LEUKOCYTE ESTERASE,URINE NEGATIVE (NEGATIVE); NITRITE,URINE NEGATIVE (NEGATIVE); OCCULT BLOOD,URINE MODERATE (NEGATIVE); PROTEIN,URINE NEGATIVE (NEGATIVE); UROBILINOGEN,URINE NORMAL (NEGATIVE)
[2024-03-12 13:47] LABS: APPEARANCE,URINE SLIGHTLY CLOUDY (CLEAR); BACTERIA,URINE FEW (NS); COLOR,URINE YELLOW (YELLOW); RBC,URINE 0-5 (0-5); SQUAMOUS EPITHELIAL CELLS,UR FEW (NS,R,O); WBC,URINE 0-5 (0-5)
[2024-03-12 14:38] LABS: BASOPHILS PERCENT AUTO 0.4 % (0.2-1.5); EOSINOPHILS PERCENT AUTO 0.6 % (0.6-8.1); HEMATOCRIT 39.5 % (34.2-48.2); LYMPHOCYTES ABSOLUTE AUTO 2.1 x10-3/uL (1.0-4.4); LYMPHOCYTES PERCENT AUTO 33.2 % (18.4-52.1); MEAN CORPUSCULAR HEMOGLOBIN 25.8 pg (23.9-33.9); MEAN CORPUSCULAR VOLUME 78.1 fL (76.7-100.5); MEAN PLATELET VOLUME 6.9 fL (7.1-12.4); MONOCYTES ABSOLUTE AUTO 0.5 x10-3/uL (0.3-1.0); MONOCYTES PERCENT AUTO 7.9 % (4.4-15.7); NEUTROPHILS ABSOLUTE AUTO 3.6 x10-3/uL (1.5-6.3); NEUTROPHILS PERCENT AUTO 57.9 % (30.8-76.2); PLATELET COUNT,PLT 281 x10(3)uL (151-488); RED BLOOD CELL COUNT 5.05 x10(6)uL (3.60-5.20); RED CELL DISTRIBUTION WIDTH 14.1 % (12.3-16.5); WHITE BLOOD CELL COUNT,WBC 6.2 x10-3/uL (3.0-10.3)
[2024-03-12 14:39] LABS: BLOOD UREA NITROGEN,BUN 15 mg/dL (7-18); BUN/CREATININE RATIO 16.7 (9-20); CALCIUM 9.3 mg/dL (8.6-10.2); CARBON DIOXIDE,CO2 31 mmol/L (21-32); CHLORIDE,CL 104 mmol/L (100-110); CREATININE 0.9 mg/dL (0.55-1.02); ESTIMATED GFR 65 mL/min (>60); GLUCOSE RANDOM 109 mg/dL (80-116); SODIUM,NA 142 mmol/L (135-145)
[2024-03-12 14:48] LABS: TROPONIN I 5.1 pg/mL (4.0-60.3)
[2024-03-12 14:51] LABS: A/G RATIO 0.7; ALANINE AMINOTRANSFERASE,ALT 18 U/L (12-36); ALBUMIN 3.1 g/dL (3.2-4.6); ALKALINE PHOSPHATASE 76 IU/L (56-112); ASPARTATE AMNIOTRANSFERASE,AST 22 IU/L (5-25); BILIRUBIN TOTAL 1.2 mg/dL (0.1-1.3); PROTEIN TOTAL,TP 7.3 g/dL (6.0-8.0)
[2024-03-12 14:54] LABS: C-REACTIVE PROTEIN < 0.50 mg/dL (<0.50)
== END 2024-03-12 15:52 | disposition home or self-care (01) ==
LOC: FB.ED 13:00
DX: N39.0 Urinary tract infection, site not specified (principal); Z91.013 Allergy to seafood; Z79.899 Other long term (current) drug therapy; Z86.16 Personal history of COVID-19
CPT/HCPCS: 36415; 80053; 81001; 83605; 84484; 85025; 86140; 87086; 99285

== ENCOUNTER 2025-04-30 19:05 | Emergency (ER) | payer MEDICARE, MEDICAID ==
[2025-04-30] MEDS ORDERED: Sodium Chloride 0.9% 10 ML Syringe FLUSH PRN (20:04)
[2025-04-30 20:16] LABS: BASOPHILS ABSOLUTE AUTO 0.0 x10-3/uL (0.0-0.1); BASOPHILS PERCENT AUTO 0.2 % (0.2-1.5); EOSINOPHILS ABSOLUTE AUTO 0.0 x10-3/uL (0.0-0.8); EOSINOPHILS PERCENT AUTO 0.1 % (0.6-8.1); LYMPHOCYTES ABSOLUTE AUTO 1.0 x10-3/uL (1.0-4.4); LYMPHOCYTES PERCENT AUTO 8.5 % (18.4-52.1); MEAN PLATELET VOLUME 6.7 fL (7.1-12.4); MONOCYTES ABSOLUTE AUTO 1.0 x10-3/uL (0.3-1.0); MONOCYTES PERCENT AUTO 8.4 % (4.4-15.7); NEUTROPHILS ABSOLUTE AUTO 9.9 x10-3/uL (1.5-6.3); NEUTROPHILS PERCENT AUTO 82.8 % (30.8-76.2); PLATELET COUNT,PLT 280 x10(3)uL (151-488); RED BLOOD CELL COUNT 4.53 x10(6)uL (3.60-5.20); RED CELL DISTRIBUTION WIDTH 14.2 % (12.3-16.5); WHITE BLOOD CELL COUNT,WBC 12.0 x10-3/uL (3.0-10.3)
[2025-04-30 20:20] LABS: GLUCOSE,URINE NORMAL (NORMAL); OCCULT BLOOD,URINE LARGE (NEGATIVE)
[2025-04-30 20:21] LABS: BLOOD UREA NITROGEN,BUN 22 mg/dL (7-18); CARBON DIOXIDE,CO2 29 mmol/L (21-32); CHLORIDE,CL 100 mmol/L (100-110); CREATININE 1.2 mg/dL (0.55-1.02); EST CRCL DRUG DOSING (CG) 36.97 mL/min; ESTIMATED GFR 46 mL/min (>60); GLUCOSE RANDOM 136 mg/dL (80-116); POTASSIUM,K 4.2 mmol/L (3.5-5.3); SODIUM,NA 136 mmol/L (135-145)
[2025-04-30 20:21] LABS: APPEARANCE,URINE SLIGHTLY CLOUDY (CLEAR)
[2025-04-30 20:27] LABS: A/G RATIO 0.8; ALANINE AMINOTRANSFERASE,ALT 17 U/L (12-36); ASPARTATE AMNIOTRANSFERASE,AST 24 IU/L (5-25); BILIRUBIN TOTAL 1.1 mg/dL (0.1-1.3); PROTEIN TOTAL,TP 7.6 g/dL (6.0-8.0)
[2025-04-30 21:23] LABS: SQUAMOUS EPITHELIAL CELLS,UR FEW (NS,R,O)
[2025-04-30 21:24] LABS: FINE GRANULAR CASTS,URINE FEW (NS)
== END 2025-04-30 21:59 | disposition home or self-care (01) ==
LOC: FB.ED 19:05
DX: E86.0 Dehydration (principal); R29.6 Repeated falls; Z91.013 Allergy to seafood; Z79.899 Other long term (current) drug therapy; Z86.16 Personal history of COVID-19; W18.39XA Other fall on same level, initial encounter; Y93.89 Activity, other specified
CPT/HCPCS: 36415; 71045; 80053; 81001; 83605; 83735; 84484; 85025; 86140; 96360; 99285; J7030

== ENCOUNTER 2025-05-03 11:00 | Inpatient (IN) | payer MEDICARE, MEDICAID ==
[2025-05-03 11:34] LABS: BASOPHILS ABSOLUTE AUTO 0.1 x10-3/uL (0.0-0.1); BASOPHILS PERCENT AUTO 0.5 % (0.2-1.5); EOSINOPHILS ABSOLUTE AUTO 0.1 x10-3/uL (0.0-0.8); EOSINOPHILS PERCENT AUTO 0.9 % (0.6-8.1); LYMPHOCYTES ABSOLUTE AUTO 1.6 x10-3/uL (1.0-4.4); LYMPHOCYTES PERCENT AUTO 16.7 % (18.4-52.1); MEAN PLATELET VOLUME 6.8 fL (7.1-12.4); MONOCYTES ABSOLUTE AUTO 0.8 x10-3/uL (0.3-1.0); MONOCYTES PERCENT AUTO 8.0 % (4.4-15.7); NEUTROPHILS ABSOLUTE AUTO 7.3 x10-3/uL (1.5-6.3); NEUTROPHILS PERCENT AUTO 73.9 % (30.8-76.2); PLATELET COUNT,PLT 315 x10(3)uL (151-488); RED BLOOD CELL COUNT 4.46 x10(6)uL (3.60-5.20); RED CELL DISTRIBUTION WIDTH 14.2 % (12.3-16.5); WHITE BLOOD CELL COUNT,WBC 9.9 x10-3/uL (3.0-10.3)
[2025-05-03 11:40] LABS: BLOOD UREA NITROGEN,BUN 18 mg/dL (7-18); CARBON DIOXIDE,CO2 31 mmol/L (21-32); CHLORIDE,CL 103 mmol/L (100-110); CREATININE 1.0 mg/dL (0.55-1.02); ESTIMATED GFR 57 mL/min (>60); GLUCOSE RANDOM 159 mg/dL (80-116); POTASSIUM,K 3.5 mmol/L (3.5-5.3); SODIUM,NA 140 mmol/L (135-145)
[2025-05-03 11:46] LABS: A/G RATIO 0.7; ALANINE AMINOTRANSFERASE,ALT 32 U/L (12-36); ASPARTATE AMNIOTRANSFERASE,AST 34 IU/L (5-25); BILIRUBIN TOTAL 1.1 mg/dL (0.1-1.3); PROTEIN TOTAL,TP 7.3 g/dL (6.0-8.0)
[2025-05-03 12:12] LABS: INFLUENZA A NAA NEGATIVE (NEGATIVE); INFLUENZA B NAA NEGATIVE (NEGATIVE); RESPIRATORY SYNCYTIAL VIR NAA NEGATIVE (NEGATIVE)
[2025-05-03 12:16] LABS: CORONAVIRUS COVID-19 NAA POSITIVE (NEGATIVE)
[2025-05-03] MEDS ORDERED: Ondansetron 4 MG/2 ML SDV IV PRN (12:32)
[2025-05-03] MEDS ORDERED: Sennosides/Docusate Sodium 50-8.6 MG Tab PO PRN (12:32)
[2025-05-03] MEDS ORDERED: Magnesium Hydroxide 400 MG/5 ML Susp 30 ML Cup PO PRN (13:24)
[2025-05-03] MEDS ORDERED: guaiFENesin 100 MG/5 ML Soln 5 ML UD Cup PO PRN (13:24)
[2025-05-03] MEDS ORDERED: Aluminum Hydroxide/Magnesium Hydroxide Susp 30 ML Cup PO PRN (13:29)
[2025-05-04 06:48] LABS: BASOPHILS ABSOLUTE AUTO 0.1 x10-3/uL (0.0-0.1); BASOPHILS PERCENT AUTO 0.6 % (0.2-1.5); EOSINOPHILS ABSOLUTE AUTO 0.1 x10-3/uL (0.0-0.8); EOSINOPHILS PERCENT AUTO 0.8 % (0.6-8.1); LYMPHOCYTES ABSOLUTE AUTO 1.8 x10-3/uL (1.0-4.4); LYMPHOCYTES PERCENT AUTO 18.4 % (18.4-52.1); MEAN PLATELET VOLUME 6.6 fL (7.1-12.4); MONOCYTES ABSOLUTE AUTO 1.1 x10-3/uL (0.3-1.0); MONOCYTES PERCENT AUTO 11.2 % (4.4-15.7); NEUTROPHILS ABSOLUTE AUTO 6.7 x10-3/uL (1.5-6.3); NEUTROPHILS PERCENT AUTO 69.0 % (30.8-76.2); PLATELET COUNT,PLT 308 x10(3)uL (151-488); RED BLOOD CELL COUNT 3.92 x10(6)uL (3.60-5.20); RED CELL DISTRIBUTION WIDTH 14.4 % (12.3-16.5); WHITE BLOOD CELL COUNT,WBC 9.8 x10-3/uL (3.0-10.3)
[2025-05-04 06:56] LABS: A/G RATIO 0.6; ALANINE AMINOTRANSFERASE,ALT 30 U/L (12-36); ASPARTATE AMNIOTRANSFERASE,AST 31 IU/L (5-25); BILIRUBIN TOTAL 0.8 mg/dL (0.1-1.3); BLOOD UREA NITROGEN,BUN 11 mg/dL (7-18); CARBON DIOXIDE,CO2 28 mmol/L (21-32); CHLORIDE,CL 104 mmol/L (100-110); CREATININE 0.7 mg/dL (0.55-1.02); EST CRCL DRUG DOSING (CG) 63.37 mL/min; ESTIMATED GFR 88 mL/min (>60); GLUCOSE RANDOM 97 mg/dL (80-116); POTASSIUM,K 3.8 mmol/L (3.5-5.3); PROTEIN TOTAL,TP 6.2 g/dL (6.0-8.0); SODIUM,NA 138 mmol/L (135-145)
[2025-05-04] MEDS: Venlafaxine 75 MG Cap.ER PO SCH (11:11)
[2025-05-04] MEDS ORDERED: VENLAFAXINE HCL 150 MG PO SCH (12:00)
[2025-05-05 07:05] LABS: BASOPHILS ABSOLUTE AUTO 0.1 x10-3/uL (0.0-0.1); BASOPHILS PERCENT AUTO 0.7 % (0.2-1.5); EOSINOPHILS ABSOLUTE AUTO 0.1 x10-3/uL (0.0-0.8); EOSINOPHILS PERCENT AUTO 1.5 % (0.6-8.1); LYMPHOCYTES ABSOLUTE AUTO 2.0 x10-3/uL (1.0-4.4); LYMPHOCYTES PERCENT AUTO 21.5 % (18.4-52.1); MEAN PLATELET VOLUME 6.7 fL (7.1-12.4); MONOCYTES ABSOLUTE AUTO 1.1 x10-3/uL (0.3-1.0); MONOCYTES PERCENT AUTO 12.2 % (4.4-15.7); NEUTROPHILS ABSOLUTE AUTO 6.0 x10-3/uL (1.5-6.3); NEUTROPHILS PERCENT AUTO 64.1 % (30.8-76.2); PLATELET COUNT,PLT 330 x10(3)uL (151-488); RED BLOOD CELL COUNT 3.93 x10(6)uL (3.60-5.20); RED CELL DISTRIBUTION WIDTH 14.1 % (12.3-16.5); WHITE BLOOD CELL COUNT,WBC 9.3 x10-3/uL (3.0-10.3)
[2025-05-05 07:11] LABS: BLOOD UREA NITROGEN,BUN 10 mg/dL (7-18); CARBON DIOXIDE,CO2 28 mmol/L (21-32); CHLORIDE,CL 103 mmol/L (100-110); CREATININE 0.8 mg/dL (0.55-1.02); EST CRCL DRUG DOSING (CG) 55.45 mL/min; ESTIMATED GFR 75 mL/min (>60); GLUCOSE RANDOM 98 mg/dL (80-116); POTASSIUM,K 3.8 mmol/L (3.5-5.3); SODIUM,NA 138 mmol/L (135-145)
[2025-05-06 07:03] LABS: BASOPHILS ABSOLUTE AUTO 0.1 x10-3/uL (0.0-0.1); BASOPHILS PERCENT AUTO 0.6 % (0.2-1.5); EOSINOPHILS ABSOLUTE AUTO 0.1 x10-3/uL (0.0-0.8); EOSINOPHILS PERCENT AUTO 1.2 % (0.6-8.1); LYMPHOCYTES ABSOLUTE AUTO 1.8 x10-3/uL (1.0-4.4); LYMPHOCYTES PERCENT AUTO 20.4 % (18.4-52.1); MEAN PLATELET VOLUME 6.9 fL (7.1-12.4); MONOCYTES ABSOLUTE AUTO 1.0 x10-3/uL (0.3-1.0); MONOCYTES PERCENT AUTO 11.0 % (4.4-15.7); NEUTROPHILS ABSOLUTE AUTO 6.0 x10-3/uL (1.5-6.3); NEUTROPHILS PERCENT AUTO 66.8 % (30.8-76.2); PLATELET COUNT,PLT 374 x10(3)uL (151-488); RED BLOOD CELL COUNT 3.91 x10(6)uL (3.60-5.20); RED CELL DISTRIBUTION WIDTH 14.5 % (12.3-16.5); WHITE BLOOD CELL COUNT,WBC 9.0 x10-3/uL (3.0-10.3)
[2025-05-06 07:10] LABS: BLOOD UREA NITROGEN,BUN 12 mg/dL (7-18); CARBON DIOXIDE,CO2 28 mmol/L (21-32); CHLORIDE,CL 103 mmol/L (100-110); CREATININE 0.7 mg/dL (0.55-1.02); EST CRCL DRUG DOSING (CG) 63.37 mL/min; ESTIMATED GFR 88 mL/min (>60); GLUCOSE RANDOM 97 mg/dL (80-116); POTASSIUM,K 3.8 mmol/L (3.5-5.3); SODIUM,NA 136 mmol/L (135-145)
[2025-05-06] MEDS: Sodium Chloride 0.9% 10 ML Syringe FLUSH PRN (11:37)
[2025-05-08 06:42] LABS: BASOPHILS ABSOLUTE AUTO 0.1 x10-3/uL (0.0-0.1); BASOPHILS PERCENT AUTO 1.0 % (0.2-1.5); EOSINOPHILS ABSOLUTE AUTO 0.1 x10-3/uL (0.0-0.8); EOSINOPHILS PERCENT AUTO 1.5 % (0.6-8.1); LYMPHOCYTES ABSOLUTE AUTO 2.2 x10-3/uL (1.0-4.4); LYMPHOCYTES PERCENT AUTO 23.3 % (18.4-52.1); MEAN PLATELET VOLUME 6.7 fL (7.1-12.4); MONOCYTES ABSOLUTE AUTO 1.1 x10-3/uL (0.3-1.0); MONOCYTES PERCENT AUTO 11.2 % (4.4-15.7); NEUTROPHILS ABSOLUTE AUTO 6.0 x10-3/uL (1.5-6.3); NEUTROPHILS PERCENT AUTO 63.0 % (30.8-76.2); PLATELET COUNT,PLT 455 x10(3)uL (151-488); RED BLOOD CELL COUNT 4.06 x10(6)uL (3.60-5.20); RED CELL DISTRIBUTION WIDTH 14.4 % (12.3-16.5); WHITE BLOOD CELL COUNT,WBC 9.6 x10-3/uL (3.0-10.3)
[2025-05-08 06:48] LABS: A/G RATIO 0.5; ALANINE AMINOTRANSFERASE,ALT 40 U/L (12-36); ASPARTATE AMNIOTRANSFERASE,AST 36 IU/L (5-25); BILIRUBIN TOTAL 0.5 mg/dL (0.1-1.3); BLOOD UREA NITROGEN,BUN 16 mg/dL (7-18); CARBON DIOXIDE,CO2 32 mmol/L (21-32); CHLORIDE,CL 102 mmol/L (100-110); CREATININE 1.0 mg/dL (0.55-1.02); EST CRCL DRUG DOSING (CG) 44.36 mL/min; ESTIMATED GFR 57 mL/min (>60); GLUCOSE RANDOM 96 mg/dL (80-116); POTASSIUM,K 4.3 mmol/L (3.5-5.3); PROTEIN TOTAL,TP 6.6 g/dL (6.0-8.0); SODIUM,NA 139 mmol/L (135-145)
[2025-05-09 06:51] LABS: BASOPHILS ABSOLUTE AUTO 0.0 x10-3/uL (0.0-0.1); BASOPHILS PERCENT AUTO 0.1 % (0.2-1.5); EOSINOPHILS ABSOLUTE AUTO 0.2 x10-3/uL (0.0-0.8); EOSINOPHILS PERCENT AUTO 2.0 % (0.6-8.1); LYMPHOCYTES ABSOLUTE AUTO 2.3 x10-3/uL (1.0-4.4); LYMPHOCYTES PERCENT AUTO 27.4 % (18.4-52.1); MEAN PLATELET VOLUME 6.6 fL (7.1-12.4); MONOCYTES ABSOLUTE AUTO 0.8 x10-3/uL (0.3-1.0); MONOCYTES PERCENT AUTO 9.2 % (4.4-15.7); NEUTROPHILS ABSOLUTE AUTO 5.2 x10-3/uL (1.5-6.3); NEUTROPHILS PERCENT AUTO 61.3 % (30.8-76.2); PLATELET COUNT,PLT 472 x10(3)uL (151-488); RED BLOOD CELL COUNT 4.09 x10(6)uL (3.60-5.20); RED CELL DISTRIBUTION WIDTH 14.5 % (12.3-16.5); WHITE BLOOD CELL COUNT,WBC 8.5 x10-3/uL (3.0-10.3)
[2025-05-09 06:56] LABS: BLOOD UREA NITROGEN,BUN 17 mg/dL (7-18); CARBON DIOXIDE,CO2 32 mmol/L (21-32); CHLORIDE,CL 103 mmol/L (100-110); CREATININE 0.9 mg/dL (0.55-1.02); EST CRCL DRUG DOSING (CG) 49.29 mL/min; ESTIMATED GFR 65 mL/min (>60); GLUCOSE RANDOM 94 mg/dL (80-116); POTASSIUM,K 4.4 mmol/L (3.5-5.3); SODIUM,NA 139 mmol/L (135-145)
== END 2025-05-09 09:58 | disposition swing bed (61) | DRG 299 ==
LOC: FB.ED 11:00 → FB.MS 12:32
PROVIDERS: ADMIT Family Medicine; ATTEND Family Medicine
PROC: 8E0ZXY6 Isolation (ICD-10-PCS; principal; 2025-05-03)
PROC: 3E03329 Introduction of Other Anti-infective into Peripheral Vein, Percutaneous Approach (ICD-10-PCS; 2025-05-03)
DX: I82.452 Acute embolism and thrombosis of left peroneal vein (principal); U07.1 COVID-19; R29.6 Repeated falls; F03.93 Unspecified dementia, unspecified severity, with mood disturbance; F03.94 Unspecified dementia, unspecified severity, with anxiety; F33.2 Major depressive disorder, recurrent severe without psychotic features; E86.0 Dehydration; I82.412 Acute embolism and thrombosis of left femoral vein; H54.7 Unspecified visual loss; M19.90 Unspecified osteoarthritis, unspecified site; E66.9 Obesity, unspecified; R79.82 Elevated C-reactive protein (CRP); Z91.013 Allergy to seafood; Z86.16 Personal history of COVID-19; Z98.49 Cataract extraction status, unspecified eye; Z90.89 Acquired absence of other organs; Z79.899 Other long term (current) drug therapy; Z68.30 Body mass index [BMI] 30.0-30.9, adult
CPT/HCPCS: 36410; 36415; 71045; 80048; 80053; 83605; 84484; 85025; 85379; 86140; 87637; 93005; 93010; 93971-26-LT; 93971-LT; 94150; 96360; 97161-GP; 97165-GO; 97530-GO; 97530-GP; 99222; 99231; 99232; 99238; 99285; 99285-25; A9270-GY; J0696; J1650; J7030

== ENCOUNTER 2025-05-09 10:50 | Inpatient (IN) | payer MEDICARE, MEDICAID ==
[2025-05-09] MEDS ORDERED: Ondansetron 4 MG Tab.DIS PO PRN (10:55)
[2025-05-09] MEDS ORDERED: guaiFENesin 100 MG/5 ML Soln 5 ML UD Cup PO PRN (10:57)
[2025-05-09] MEDS ORDERED: Sennosides/Docusate Sodium 50-8.6 MG Tab PO PRN (10:57)
[2025-05-09] MEDS ORDERED: Magnesium Hydroxide 400 MG/5 ML Susp 30 ML Cup PO PRN (10:57)
[2025-05-09] MEDS ORDERED: Aluminum Hydroxide/Magnesium Hydroxide Susp 30 ML Cup PO PRN (11:03)
[2025-05-09] MEDS ORDERED: Venlafaxine 75 MG Cap.ER PO SCH (12:00)
[2025-05-09] MEDS: Venlafaxine 75 MG Cap.ER PO SCH (13:27)
== END 2025-05-18 12:00 | disposition home or self-care (01) | DRG 948 ==
LOC: FB.MS 10:50
PROVIDERS: ADMIT Family Medicine; ATTEND Internal Medicine
DX: R53.81 Other malaise (principal); I82.409 Acute embolism and thrombosis of unspecified deep veins of unspecified lower extremity; F03.94 Unspecified dementia, unspecified severity, with anxiety; F33.2 Major depressive disorder, recurrent severe without psychotic features; I82.412 Acute embolism and thrombosis of left femoral vein; L03.90 Cellulitis, unspecified; Z66 Do not resuscitate; H54.7 Unspecified visual loss; M19.90 Unspecified osteoarthritis, unspecified site; F41.9 Anxiety disorder, unspecified; R29.6 Repeated falls; E66.9 Obesity, unspecified; Z68.30 Body mass index [BMI] 30.0-30.9, adult; Z79.899 Other long term (current) drug therapy; Z79.01 Long term (current) use of anticoagulants; Z98.49 Cataract extraction status, unspecified eye; Z86.16 Personal history of COVID-19; Z90.49 Acquired absence of other specified parts of digestive tract
CPT/HCPCS: 97110-GP; 97116-GP; 97530-GO; 97530-GP; 97535-GO; 99305; 99315; A9270-GY